=== PATIENT | female | born 1935 | race Caucasian/White ===

== ENCOUNTER 2017-09-14 12:37 | Emergency (ER) | payer OTHER, SELFPAY ==
[2017-09-14 12:47] VITALS: BP 200/91; PULSE 78; RESP 18; TEMP 36.4; O2SAT 100
--- NOTE | 2017-09-14 15:20 | ED.LOWEXIN ---
HPI - Extremity Injury (Lower) <Donna Frazier PA-C - Last Filed: 09/14/17 22:45> General Chief Complaint: Extremity Injury, Lower Stated Complaint: LOWER BACK PAIN AND HIP PAIN Time Seen by Provider: 09/14/17 14:21 Source: patient Mode of arrival: ambulatory Limitations: no limitations History of Present Illness HPI Narrative: This 82-year-old female complains of muscle spasms and worsening right hip pain today. She has a history of scoliosis and degenerative disc disease in her low back. She actually saw her PCP yesterday for worsening back pain after she tried to move a sofa. She states x-rays were taken of her low back, and after she stood up, she has had worsening burning type pain in the area where her right hip [place] is. She states that she has had intermittent muscle spasms in her low back and hip. Her PCP gave her Sal[place] yesterday, and awhile after she tried that she vomited and cause stomach upset. She tried Tylenol and ibuprofen without relief. She also tried Tylenol with codeine without relief. She denies any new weakness or paresthesia in her legs. She denies any new fever or new urinary symptoms. She states that she has constipation and this was noted on her x-ray yesterday, but did have a small bowel movement this morning. She denies any other complaints on systems review. Notes that her blood pressure has been running high and she did not take her blood pressure medicines this morning. Related Data Home Medications Medication Instructions Recorded Confirmed Calcium 1 tab PO DAILY 09/14/17 09/14/17 Miscellaneous Vitamins 1 dose PO DAILY 09/14/17 09/14/17 Sal[place] 1 tab PO .ONCE 09/14/17 09/14/17 Vitamin D3 1 cap PO DAILY 09/14/17 09/14/17 losartan 50 mg PO BID 09/14/17 09/14/17 metoprolol tartrate 50 mg PO BID 09/14/17 09/14/17 multivitamin with minerals 1 tab PO DAILY 09/14/17 09/14/17 [Hair,Skin and Nails] vit C,Q-Xt-wywrq-lutein-zeaxan 1 cap PO DAILY 09/14/17 09/14/17 [PreserVision AREDS 2] Previous Rx's Medication Instructions Recorded cyclobenzaprine 10 mg PO Q8H PRN #10 tab 09/14/17 Allergies Allergy/AdvReac Type Severity Reaction Status Date / Time No Known Drug Allergies Allergy Verified 09/14/17 12:46 Review of Systems <MANFRED Sorenson Last Filed: 09/14/17 22:45> Review of Systems All systems reviewed & are unremarkable except as noted in HPI and below Exam <MANFRED Sorenson Last Filed: 09/14/17 22:45> Narrative Exam Narrative: GENERAL APPEARANCE: Patient sitting comfortably, in no distress. LUNGS: Clear to auscultation bilaterally. HEART: Rate and rhythm regular without murmur, normal S1 and S2, no S3 or S4. MUSCULOSKELETAL: No point tenderness over the lumbar or sacral spine or SI joints. She has mild tenderness over the right posterior lateral hip, no where else over the hip. She is able to fully flex and extend the right hip with minimal tenderness. She has full passive range of motion with negative Huagn's test. Right lower extremity strength 5/5 hip flexion, knee extension, foot plantar flexion. She is tender with trying to move from supine to sit and that appears to elicit right-sided lumbar spasm NEUROLOGIC: Right lower extremity sensation is grossly intact. Patient is alert and oriented with normal speech and coordination EXTREMITIES: No cyanosis or edema Initial Vital Signs Initial Vital Signs: Vital Signs Temperature 97.5 F L 09/14/17 12:47 Pulse Rate 78 09/14/17 12:47 Respiratory Rate 18 09/14/17 12:47 Blood Pressure 200/91 H 09/14/17 12:47 Pulse Oximetry 100 09/14/17 12:47 <Azeem Rossi DO - Last Filed: 09/20/17 09:00> Initial Vital Signs Initial Vital Signs: Vital Signs Temperature 97.5 F L 09/14/17 12:47 Pulse Rate 78 09/14/17 12:47 Respiratory Rate 18 09/14/17 12:47 Blood Pressure 200/91 H 09/14/17 12:47 Pulse Oximetry 100 09/14/17 12:47 Course <MANFRED Sorenson Last Filed: 09/14/17 22:45> Hospital Course: Patient is feeling markedly improved after medications. She has not had any vomiting or GI upset. She found that she was able to move and walk comfortably to the restroom and on departure. Orders Ordered: Discontinued Medications Hydrocodone Bitart/Acetaminophen (Sal[place] 5/325) 1 tab PO NOW ONE Stop: 09/14/17 16:21 Last Admin: 09/14/17 16:37 Dose: 1 tab Cyclobenzaprine HCl (Flexeril) 10 mg PO NOW ONE Stop: 09/14/17 15:34 Last Admin: 09/14/17 15:36 Dose: 10 mg Ondansetron HCl (Zofran Odt) 4 mg PO NOW ONE Stop: 09/14/17 15:34 Last Admin: 09/14/17 15:36 Dose: 4 mg Vital Signs - 8 hr 09/14/17 16:19 09/14/17 17:24 Pulse Rate 86 93 H Respiratory Rate 14 18 Blood Pressure 169/84 H Blood Pressure [Left Arm] 190/92 H Pulse Oximetry 98 99 <Azeem Rossi DO - Last Filed: 09/20/17 09:00> Orders Ordered: Discontinued Medications Hydrocodone Bitart/Acetaminophen ([place] 5/325) 1 tab PO NOW ONE Stop: 09/14/17 16:21 Last Admin: 09/14/17 16:37 Dose: 1 tab Cyclobenzaprine HCl (Flexeril) 10 mg PO NOW ONE Stop: 09/14/17 15:34 Last Admin: 09/14/17 15:36 Dose: 10 mg Ondansetron HCl (Zofran Odt) 4 mg PO NOW ONE Stop: 09/14/17 15:34 Last Admin: 09/14/17 15:36 Dose: 4 mg Vital Signs - 8 hr 09/14/17 16:19 09/14/17 17:24 Pulse Rate 86 93 H Respiratory Rate 14 18 Blood Pressure 169/84 H Blood Pressure [Left Arm] 190/92 H Pulse Oximetry 98 99 MDM - Extremity Injury (Lower) <Donna Frazier PA-C - Last Filed: 09/14/17 22:45> Imaging Data hip: Radiologist's impression: View Report History [address] [address] XRay Report Signed Patient: Maday Luciano MR#: [id number] : 1935 Acct:[id number] Age/Sex: 82 / F Date of Service: 09/14/17 Loc: ED Accession Number: [id number] Procedure: XR hip w pel if done RT 2V Ordering Provider: Donna Frazier P.A-C PROCEDURE: XR HIP W PEL IF DONE RT 2V INDICATIONS: pain and spasms, h/o THR TECHNIQUE: AP pelvis with lateral view(s) of the right hip(s). COMPARISON: [facility], CR, PELVIS W/LAT HIP (RT) (PNL), 05/26/2013, 10:13. FINDINGS: Bones: There is a right hip arthroplasty with prosthesis in anatomic alignment. There is lucency and irregularity in the proximal femur involving the lesser trochanter. No acute dislocations. Pelvic ring appears intact. No suspicious bony lesions. Note is made of 4 surgical screws in the left femoral neck. Soft tissues: The visualized bowel gas pattern is normal. No suspicious soft tissue calcifications. IMPRESSION: Right hip arthroplasty with prosthesis in anatomic alignment. There is lucency in the area of the lesser trochanter of the right femur. Cannot rule out subtle ky-prosthesis fracture. If clinical symptoms persist or clinical suspicion for pathology is high, a repeat examination in 7-10 days, or advanced imaging such as CT is suggested for further evaluation. Dictated by: Francois Lawrence M.D. on 09/14/2017 at 15:56 Approved by: Francois Lawrence M.D. on 09/14/2017 at 16:01 Discharge Plan Departure Patient Disposition: Home, Self-Care Clinical Impression: Spasm of muscle of lower back, Hip pain Discharge Date/Time: 09/14/17 18:01 Interventions: ED Discharge Assessment Last Done: 09/14/17 17:24 Instructions: DI for Muscle Spasm Activity Restrictions/Additional Instructions: Since you are feeling better it is reasonable to use the medicine for pain and muscle spasm as needed and monitor at home. Your x-ray did not show any acute joint problem or dislocation of your hip hardware today. It did seem that the muscle spasm medication helped you. Remember that that and the pain medication can make you sleepy, so be careful about your activities. If you need to take 1 of the pain pills that your PCP prescribed, take the nausea medicine, Odansetron, that I prescribed for you about 45 min before each dose. Remember to take stool softener or Miralax with these, you can use what you have at home. Return if you have any acutely worsening symptoms. Otherwise, follow up with your PCP in a few days for recheck to make sure you are getting better. Gentle walking and movement is okay as tolerated but avoid excessive stress on your back and hip Prescriptions: New cyclobenzaprine 10 mg tablet 10 mg PO Q8H PRN (Reason: muscle spasm) Qty: 10 RF: 0 No Action losartan 50 mg Tablet 50 mg PO BID RF: 0 metoprolol tartrate 50 mg Tablet 50 mg PO BID RF: 0 multivitamin with minerals [Hair,Skin and Nails] Tablet 1 tab PO DAILY RF: 0 vit C,W-Mz-dnjoy-lutein-zeaxan [PreserVision AREDS 2] [id number] mt-iijg-kp-mg Capsule 1 cap PO DAILY RF: 0 Calcium tablet 1 tab PO DAILY RF: 0 [place] 1 tab PO .ONCE RF: 0 Vitamin D3 1 cap PO DAILY RF: 0 Miscellaneous Vitamins 1 dose PO DAILY RF: 0 Referrals: Geovanni Rey DO [Non-Staff] - <Azeem Rossi DO - Last Filed: 09/20/17 09:00> Cosign ED Attending Rosaleeature Attestation: I was immediately available in the department for consultation. Documentation has been reviewed. I agree with assessment and plan.
--- NOTE | 2017-09-14 15:33 | DI.RAD.S_ITS ---
PROCEDURE: XR HIP W PEL IF DONE RT 2V INDICATIONS: pain and spasms, h/o THR TECHNIQUE: AP pelvis with lateral view(s) of the right hip(s). COMPARISON: [facility], , PELVIS W/LAT HIP (RT) (PNL), 05/26/2013, 10:13. FINDINGS: Bones: There is a right hip arthroplasty with prosthesis in anatomic alignment. There is lucency and irregularity in the proximal femur involving the lesser trochanter. No acute dislocations. Pelvic ring appears intact. No suspicious bony lesions. Note is made of 4 surgical screws in the left femoral neck. Soft tissues: The visualized bowel gas pattern is normal. No suspicious soft tissue calcifications. IMPRESSION: Right hip arthroplasty with prosthesis in anatomic alignment. There is lucency in the area of the lesser trochanter of the right femur. Cannot rule out subtle ky-prosthesis fracture. If clinical symptoms persist or clinical suspicion for pathology is high, a repeat examination in 7-10 days, or advanced imaging such as CT is suggested for further evaluation. Dictated by: Francois Lawrence M.D. on 09/14/2017 at 15:56 Approved by: Francois Lawrence M.D. on 09/14/2017 at 16:01
[2017-09-14] MEDS: CYCLOBENZAPRINE 10 MG TABLET PO (15:36)
[2017-09-14] MEDS: ONDANSETRON 4 MG ODT PO (15:36)
--- NOTE | 2017-09-14 15:38 | ED_ITS ---
HPI - Extremity Injury (Lower) <Donna Frazier PA-C - Last Filed: 09/14/17 22:45> General Chief Complaint: Extremity Injury, Lower Stated Complaint: LOWER BACK PAIN AND HIP PAIN Time Seen by Provider: 09/14/17 14:21 Source: patient Mode of arrival: ambulatory Limitations: no limitations History of Present Illness HPI Narrative: This 82-year-old female complains of muscle spasms and worsening right hip pain today. She has a history of scoliosis and degenerative disc disease in her low back. She actually saw her PCP yesterday for worsening back pain after she tried to move a sofa. She states x-rays were taken of her low back, and after she stood up, she has had worsening burning type pain in the area where her right hip [place] is. She states that she has had intermittent muscle spasms in her low back and hip. Her PCP gave her [place] yesterday, and awhile after she tried that she vomited and cause stomach upset. She tried Tylenol and ibuprofen without relief. She also tried Tylenol with codeine without relief. She denies any new weakness or paresthesia in her legs. She denies any new fever or new urinary symptoms. She states that she has constipation and this was noted on her x-ray yesterday, but did have a small bowel movement this morning. She denies any other complaints on systems review. Notes that her blood pressure has been running high and she did not take her blood pressure medicines this morning. Related Data Home Medications Medication Instructions Recorded Confirmed Calcium 1 tab PO DAILY 09/14/17 09/14/17 Miscellaneous Vitamins 1 dose PO DAILY 09/14/17 09/14/17 [place] 1 tab PO .ONCE 09/14/17 09/14/17 Vitamin D3 1 cap PO DAILY 09/14/17 09/14/17 losartan 50 mg PO BID 09/14/17 09/14/17 metoprolol tartrate 50 mg PO BID 09/14/17 09/14/17 multivitamin with minerals 1 tab PO DAILY 09/14/17 09/14/17 [Hair,Skin and Nails] vit C,C-Xr-yritc-lutein-zeaxan 1 cap PO DAILY 09/14/17 09/14/17 [PreserVision AREDS 2] Previous Rx's Medication Instructions Recorded cyclobenzaprine 10 mg PO Q8H PRN #10 tab 09/14/17 Allergies Allergy/AdvReac Type Severity Reaction Status Date / Time No Known Drug Allergies Allergy Verified 09/14/17 12:46 Review of Systems <MANFRED Sorenson Last Filed: 09/14/17 22:45> Review of Systems All systems reviewed & are unremarkable except as noted in HPI and below Exam <MANFRED Sorenson Last Filed: 09/14/17 22:45> Narrative Exam Narrative: GENERAL APPEARANCE: Patient sitting comfortably, in no distress. LUNGS: Clear to auscultation bilaterally. HEART: Rate and rhythm regular without murmur, normal S1 and S2, no S3 or S4. MUSCULOSKELETAL: No point tenderness over the lumbar or sacral spine or SI joints. She has mild tenderness over the right posterior lateral hip, no where else over the hip. She is able to fully flex and extend the right hip with minimal tenderness. She has full passive range of motion with negative Huang' s test. Right lower extremity strength 5/5 hip flexion, knee extension, foot plantar flexion. She is tender with trying to move from supine to sit and that appears to elicit right-sided lumbar spasm NEUROLOGIC: Right lower extremity sensation is grossly intact. Patient is alert and oriented with normal speech and coordination EXTREMITIES: No cyanosis or edema Initial Vital Signs Initial Vital Signs: Vital Signs Temperature 97.5 F L 09/14/17 12:47 Pulse Rate 78 09/14/17 12:47 Respiratory Rate 18 09/14/17 12:47 Blood Pressure 200/91 H 09/14/17 12:47 Pulse Oximetry 100 09/14/17 12:47 <Azeem Rossi DO - Last Filed: 09/20/17 09:00> Initial Vital Signs Initial Vital Signs: Vital Signs Temperature 97.5 F L 09/14/17 12:47 Pulse Rate 78 09/14/17 12:47 Respiratory Rate 18 09/14/17 12:47 Blood Pressure 200/91 H 09/14/17 12:47 Pulse Oximetry 100 09/14/17 12:47 Course <MANFRED Sorenson Last Filed: 09/14/17 22:45> Hospital Course: Patient is feeling markedly improved after medications. She has not had any vomiting or GI upset. She found that she was able to move and walk comfortably to the restroom and on departure. Orders Ordered: Discontinued Medications Hydrocodone Bitart/Acetaminophen ([place] 5/325) 1 tab PO NOW ONE Stop: 09/14/17 16:21 Last Admin: 09/14/17 16:37 Dose: 1 tab Cyclobenzaprine HCl (Flexeril) 10 mg PO NOW ONE Stop: 09/14/17 15:34 Last Admin: 09/14/17 15:36 Dose: 10 mg Ondansetron HCl (Zofran Odt) 4 mg PO NOW ONE Stop: 09/14/17 15:34 Last Admin: 09/14/17 15:36 Dose: 4 mg Vital Signs - 8 hr 09/14/17 16:19 09/14/17 17:24 Pulse Rate 86 93 H Respiratory Rate 14 18 Blood Pressure 169/84 H Blood Pressure [Left Arm] 190/92 H Pulse Oximetry 98 99 <Azeem Rossi DO - Last Filed: 09/20/17 09:00> Orders Ordered: Discontinued Medications Hydrocodone Bitart/Acetaminophen ([place] 5/325) 1 tab PO NOW ONE Stop: 09/14/17 16:21 Last Admin: 09/14/17 16:37 Dose: 1 tab Cyclobenzaprine HCl (Flexeril) 10 mg PO NOW ONE Stop: 09/14/17 15:34 Last Admin: 09/14/17 15:36 Dose: 10 mg Ondansetron HCl (Zofran Odt) 4 mg PO NOW ONE Stop: 09/14/17 15:34 Last Admin: 09/14/17 15:36 Dose: 4 mg Vital Signs - 8 hr 09/14/17 16:19 09/14/17 17:24 Pulse Rate 86 93 H Respiratory Rate 14 18 Blood Pressure 169/84 H Blood Pressure [Left Arm] 190/92 H Pulse Oximetry 98 99 MDM - Extremity Injury (Lower) <Donna Frazier PA-C - Last Filed: 09/14/17 22:45> Imaging Data hip: Radiologist's impression: View Report History [address] [address] XRay Report Signed Patient: Maday Luciano MR#: [id number] : 1935 Acct:[id number] Age/Sex: 82 / F Date of Service: 09/14/17 Loc: ED Accession Number: [id number] Procedure: XR hip w pel if done RT 2V Ordering Provider: Donna Frazier P.A-C PROCEDURE: XR HIP W PEL IF DONE RT 2V INDICATIONS: pain and spasms, h/o THR TECHNIQUE: AP pelvis with lateral view(s) of the right hip(s). COMPARISON: [facility], CR, PELVIS W/ LAT HIP (RT) (PNL), 05/26/2013, 10:13. FINDINGS: Bones: There is a right hip arthroplasty with prosthesis in anatomic alignment. There is lucency and irregularity in the proximal femur involving the lesser trochanter. No acute dislocations. Pelvic ring appears intact. No suspicious bony lesions. Note is made of 4 surgical screws in the left femoral neck. Soft tissues: The visualized bowel gas pattern is normal. No suspicious soft tissue calcifications. IMPRESSION: Right hip arthroplasty with prosthesis in anatomic alignment. There is lucency in the area of the lesser trochanter of the right femur. Cannot rule out subtle ky-prosthesis fracture. If clinical symptoms persist or clinical suspicion for pathology is high, a repeat examination in 7-10 days, or advanced imaging such as CT is suggested for further evaluation. Dictated by: Francois Lawrence M.D. on 09/14/2017 at 15:56 Approved by: Francois Lawrence M.D. on 09/14/2017 at 16:01 Discharge Plan Departure Patient Disposition: Home, Self-Care Clinical Impression: Spasm of muscle of lower back, Hip pain Discharge Date/Time: 09/14/17 18:01 Interventions: ED Discharge Assessment Last Done: 09/14/17 17:24 Instructions: DI for Muscle Spasm Activity Restrictions/Additional Instructions: Since you are feeling better it is reasonable to use the medicine for pain and muscle spasm as needed and monitor at home. Your x-ray did not show any acute joint problem or dislocation of your hip hardware today. It did seem that the muscle spasm medication helped you. Remember that that and the pain medication can make you sleepy, so be careful about your activities. If you need to take 1 of the pain pills that your PCP prescribed, take the nausea medicine, Odansetron, that I prescribed for you about 45 min before each dose. Remember to take stool softener or Miralax with these, you can use what you have at home. Return if you have any acutely worsening symptoms. Otherwise, follow up with your PCP in a few days for recheck to make sure you are getting better. Gentle walking and movement is okay as tolerated but avoid excessive stress on your back and hip Prescriptions: New cyclobenzaprine 10 mg tablet 10 mg PO Q8H PRN (Reason: muscle spasm) Qty: 10 RF: 0 No Action losartan 50 mg Tablet 50 mg PO BID RF: 0 metoprolol tartrate 50 mg Tablet 50 mg PO BID RF: 0 multivitamin with minerals [Hair,Skin and Nails] Tablet 1 tab PO DAILY RF: 0 vit C,P-Jt-bpvaw-lutein-zeaxan [PreserVision AREDS 2] 125-030-27-1 mg-unit-mg- mg Capsule 1 cap PO DAILY RF: 0 Calcium tablet 1 tab PO DAILY RF: 0 [place] 1 tab PO .ONCE RF: 0 Vitamin D3 1 cap PO DAILY RF: 0 Miscellaneous Vitamins 1 dose PO DAILY RF: 0 Referrals: Geovanni Rey DO [Non-Staff] - <Azeem Rossi DO - Last Filed: 09/20/17 09:00> Cosign ED Attending Rosaleeature Attestation: I was immediately available in the department for consultation. Documentation has been reviewed. I agree with assessment and plan.
--- NOTE | 2017-09-14 15:47 | PC.NURSE ---
initial contact with pt in bed 13 to medicate pt with zofran and cyclobenzaprine for low back and hip pain. Pt reports had tried to move a furniture about 4 days ago alone which causing the pain. Attempted [place] for pain mgt but it is causing nausea and unable to tolerate it.
[2017-09-14 16:19] VITALS: BP 190/92; PULSE 86; RESP 14; O2SAT 98
[2017-09-14] MEDS: HYDROCODONE/ACET 5/325 TABLET 1 TAB PO (16:37)
--- NOTE | 2017-09-14 16:39 | PC.NURSE ---
Pt reports feeling a bit better but still has intermittent muscle spasm. medicated pt with norco as ordered. pt reports uses a walker at home for ambulation.
[2017-09-14 17:24] VITALS: BP 169/84; PULSE 93; RESP 18; O2SAT 99
== END 2017-09-14 18:01 | disposition home or self-care (01) ==
PROVIDERS: Emergency Provider Internal Medicine
DX: M62.830 Muscle spasm of back (principal); M25.559 Pain in unspecified hip
CPT/HCPCS: 73502; 99282; 99283

== ENCOUNTER → 2017-09-24 06:31 | Outpatient (CLI) | payer OTHER, SELFPAY ==
--- NOTE | 2017-09-24 | DI.MRI.S_ITS ---
PROCEDURE: MR LUMBAR SPINE WO CON INDICATIONS: LOW BACK PAIN TECHNIQUE: Noncontrast sagittal T1 spin echo and T2 fast echo, sagittal STIR, axial T1 and T2 fast spin echo through the lumbar spine. In cases with scoliosis, additional coronal T2 fast spin echo may be performed. COMPARISON: [facility] [place], CR, SPINE LUMB MIN 4VW, 04/24/2014, 10:38. FINDINGS: Image quality: Excellent. Alignment and Curvature: There is moderate scoliosis. Bone Marrow: Compression fracture involving the anterior endplate of L3 with approximately 30% loss of vertebral body height. No significant posterior displacement of L3 vertebral body. Mild marrow edema is present along the inferior endplate of L3. The fracture is new since the last lumbar spine radiograph dated 04/24/2014. Spinal Cord: Conus medullaris terminates at the L1-L2 level. Visualized cord demonstrates normal signal and size. Paraspinous Soft Tissues: No paravertebral masses. L1-L2: Preserved disc height. Moderate disc desiccation. There is broad posterior disc bulge and disc osteophyte complex. The central canal is mildly narrowed. Fnhe-ee-cnnsscqw bilateral foraminal stenosis. L2-L3: Mild loss of disc height and disc desiccation. There is broad posterior disc bulge and disc osteophyte complex. The central canal is epmd-mh-grmuohwskz narrowed. Lsri-cn-pxjhqnlg bilateral foraminal stenosis. L3-L4: Moderate loss of disc height and disc desiccation. There is broad posterior disc bulge and disc osteophyte complex. Mild bilateral facet arthropathy and hypertrophy of ligamentum flavum. The central canal is sxejmsjp-wv-edohsaft narrowed. Severe bilateral foraminal stenosis. L4-L5: Moderate loss of disc height and disc desiccation. There is broad posterior disc bulge and disc osteophyte complex. Mild bilateral facet arthropathy and moderate hypertrophy of ligamentum flavum. The central canal is eyrfzgzy-kv-wqwgjlkt narrowed. Severe right and mild left foraminal stenosis. L5-S1: Preserved disc height and mild disc desiccation with mild broad posterior disc bulge. Moderate hypertrophy of ligamentum flavum. The central canal is minimally narrowed. No foramina stenosis. IMPRESSION: 1. Acute or subacute compression fracture of L3 involving the inferior endplate with approximately 30% loss of vertebral body height. 2. Multilevel degenerative disc disease and facet arthropathy as described. 3. Multilevel central canal stenosis, moderate to severe at L3-L4 and L4-L5. 4. Multilevel foraminal stenosis, severe at L3-L4 bilaterally and L4-L5 on the right. Dictated by: Francois Lawrence M.D. on 09/24/2017 at 9:29 Transcribed by: NIDIA on 09/24/2017 at 9:44 Approved by: Francois Lawrence M.D. on 09/24/2017 at 18:51
== END ==
PROVIDERS: PCP Family Medicine; Visit Provider Family Medicine
DX: M54.5 Low back pain (principal); M48.56XA Collapsed vertebra, not elsewhere classified, lumbar region, initial encounter for fracture; M51.36 Other intervertebral disc degeneration, lumbar region; M48.061 Spinal stenosis, lumbar region without neurogenic claudication
CPT/HCPCS: 72148

== ENCOUNTER 2019-09-18 10:07 | Emergency (ER) | payer OTHER, SELFPAY ==
[2019-09-18 10:23] VITALS: BP 170/77; PULSE 63; RESP 19; TEMP 36.8; O2SAT 98; BMI 20.5
--- NOTE | 2019-09-18 10:49 | DI.RAD.S_ITS ---
PROCEDURE: XR CHEST 1V INDICATIONS: shortness of breath, intermitant chest pain TECHNIQUE: One view of the chest was acquired. COMPARISON: [facility], , CHEST 1 VIEW, 02/01/2013, 16:38. FINDINGS: Surgical changes and devices: None. Lungs and pleura: Lungs are clear. No pleural effusions or pneumothorax. Mediastinum: Mediastinal contours appear normal. Heart size is normal. Bones and chest wall: No suspicious bony lesions. Overlying soft tissues appear unremarkable. IMPRESSION: No evidence acute pulmonary process. Dictated by: Hansel Palacio M.D. on 09/18/2019 at 11:10 Approved by: Hansel Palacio M.D. on 09/18/2019 at 11:10
[2019-09-18 10:51] VITALS: BP 163/76; PULSE 60; RESP 16; O2SAT 98
--- NOTE | 2019-09-18 10:59 | DI.CT.S_ITS ---
PROCEDURE: CT HEAD/BRAIN WO CON INDICATIONS: headache with hypertension and intermittent chest pain TECHNIQUE: Noncontrast 4.5 mm thick angled axial sections acquired from the foramen magnum to the vertex, with coronal and sagittal reformats. For radiation dose reduction, the following was used: automated exposure control, adjustment of mA and/or kV according to patient size. COMPARISON: None. FINDINGS: Image quality: Excellent. CSF spaces: Basal cisterns are patent. No extra-axial fluid collections. Ventricles are normal in size and shape. Brain: No midline shift. No intracranial masses or hemorrhage. Vaca-white matter interface is normal. Age-related volume loss and mild small vessel ischemic change. Intracranial internal carotid artery atherosclerotic calcifications bilaterally. Skull and face: Calvarium and visualized facial bones are intact, without suspicious lesions. 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 IMPRESSION: 1. 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 No evidence acute stroke, hemorrhage, or mass. 3. Age related volume loss and mild small vessel ischemic change. Dictated by: Hansel Palacio M.D. on 09/18/2019 at 11:29 Approved by: Hansel Palacio M.D. on 09/18/2019 at 11:37
[2019-09-18 11:00] LABS: Add Manual Diff / Slide Review NO; Basophils Absolute Auto 100 /uL (0-100); Basophils Percent Auto 0.8 % (0-2); Eosinophils Absolute Auto 100 /uL (0-450); Eosinophils Percent Auto 1.5 % (2-4); Hemoglobin 13.8 g/dL (12.0-16.0); Lymphocytes Absolute Auto 1100 /uL (1100-4500); Mean Corpuscular HGB Conc 34.5 % (30-36); Mean Corpuscular Hemoglobin 31.6 PG (26-34); Mean Corpuscular Volume 91.5 fL (80-100); Monocytes Absolute Auto 800 /uL (0-900); Monocytes Percent Auto 11.5 % (3-14); Neutrophils Absolute Auto 5100 /uL (1500-7000); Neutrophils Percent Auto 71.2 % (50-75); Platelet Count 184 X10^3/uL (150-400); Red Blood Cell Count 4.37 X10^6/uL (4.0-5.2); Red Cell Distribution Width 13.6 % (11.6-14.8); White Blood Cell Count 7.1 X10^3/uL (4.5-11.0)
--- NOTE | 2019-09-18 11:00 | ED_ITS ---
HPI - Headache General Chief Complaint: Headache Stated Complaint: Headaches, started on left side, now in the back Time Seen by Provider: 09/18/19 10:36 Mode of arrival: Ambulatory Limitations: no limitations History of Present Illness HPI Narrative: CC: headache HPI: The patient is a 4-year-old female who intermittently has been having chest pain. Today the patient had a dull achy chest pain which is now resolved. She states that she developed a headache last night and was ready to call 911. She normally does not have headaches. Her headache was located in the left frontal parietal which moved down into her neck and back of her neck. She has never had a migraine to her knowledge. However her daughter has migraines. She admits to history of hypertension. She had coronary stenting performed in December at [facility] in December for coronary artery disease. She states she has been told that she had a previous myocardial infarction unbeknownst to her and she has a history of hypertension but denies diabetes mellitus. She denies stroke congestive heart failure COPD or asthma. She is a former smoker quit when she was 49 years old does not drink alcohol uses CBD marijuana or oil for neck pain. She denies any phonophobia photophobia nausea vomiting any change in vision loss of vision partial vision blind spots glaucoma and diplopia. She has had no numbness tingling paresthesias anesthesia is paresis or paralysis. Earlier she had chest pain but not she is not having chest pain at this time. She states that she has intermittent chest pain in the center of her chest which does not radiate anywhere. She has had no urinary symptoms. Related Data Home Medications Medication Instructions Recorded Confirmed losartan 50 mg PO BID 09/14/17 09/18/19 metoprolol tartrate 50 mg PO BID 09/14/17 09/18/19 multivitamin with minerals 1 tab PO DAILY 09/14/17 09/18/19 [Hair,Skin and Nails] amlodipine 5 mg PO BEDTIME 09/18/19 09/18/19 aspirin [Adult Low Dose Aspirin] 81 mg PO DAILY 09/18/19 09/18/19 atorvastatin 40 mg PO BEDTIME 09/18/19 09/18/19 calcium carb-mag oxide-vit D3 1 tab PO BEDTIME 09/18/19 09/18/19 [Calcium Magnesium + D] clopidogrel [Plavix] 75 mg PO BID 09/18/19 09/18/19 coenzyme Q10 [Co Q-10] 30 mg PO BEDTIME 09/18/19 09/18/19 nitroglycerin 0.4 mg SUBLINGUAL Q5-15M PRN 09/18/19 09/18/19 vitamins A,C,[id number]-kmii-oysczj 1 cap PO BID 09/18/19 09/18/19 [PreserVision AREDS] Previous Rx's Medication Instructions Recorded amoxicillin-pot clavulanate 1 tab PO Q12H #14 tab 09/18/19 [Augmentin] cyclobenzaprine 5 mg PO TID PRN #15 tab 09/18/19 prochlorperazine maleate 10 mg PO Q6H PRN #15 tab 09/18/19 [Compazine] Allergies Allergy/AdvReac Type Severity Reaction Status Date / Time No Known Drug Allergies Allergy Verified 09/18/19 10:35 Review of Systems Review of Systems Narrative: The patient's review of systems are all negative except for those mentioned in the history of present illness. Patient History Medical History Degenerative disc disease (Chronic) Osteoarthritis of both hips (Resolved) Scoliosis (Chronic) Surgical History (Updated 09/14/17 @ 15:43 by Donna Frazier PA-C) H/O bilateral hip replacements (Resolved) H/O exploratory laparotomy (Resolved) Social History Smoking Status: Former smoker Smoking Status: Former smoker alcohol intake frequency: 0-2 drinks per day Substance Use Type: does not use Exam Narrative Exam Narrative: PHYSICAL EXAM: CONSTITUTIONAL: Awake, Alert, Oriented, Coherent, Cooperative Pleasant and talkative. She is in NAD. She does not appear toxic or ill. HEAD: AT/NC right and left temples are nontender. She is nontender over her f orehead or parietal scalp. EENT: PERRL, FROM of eyes, no discharge, no nystagmus, no conjunctivitis. NOSE:No epistaxis or nasal drainage MOUTH:Oral mucosa is moist and pink, posterior pharynx is without erythema or exudate. NECK: Supple, no obvious JVD, Trachea is midline without stridor, no palpable LN. SPINE: Palpationof the cervical, Thoracic, Lumbar or Sacral spine reveals no gross deformity or tenderness. No paraspinous muscle tenderness or spasm. She has full range of motion of her neck. No CVA tenderness. THORAX: No deformity, retractions, chest wall tenderness. LUNGS: Clear, symmetrical breath sounds without respiratory distress. HEART: Normal heart tones, regular rhythm and rate without murmur. ABDOMEN: Soft, non-tender, without guarding, rebound, rigidity or palpable mass. LYMPHATIC: no palpable lymph nodes or spleen. EXTREMITIES: No edema, deformity, tenderness or cyanosis. SKIN: No rash, bruising, petechiae or purpura. NEURO: Awake, alert, oriented, conversive, cranial nerves II-XII are symmetrical , moves all 4 extremities and is ambulatory. Cerebellar functions are within normal limits. Rapid alternating motions are intact. [id number] is within normal limits. Visual goode are intact. Elools-fm-[id number] is within normal limits she has symmetrical strength no drift symmetrical sensation. MENTAL HEALTH: Does not appear anxious or depressed. Initial Vital Signs Initial Vital Signs: Vital Signs Temperature 98.3 F 09/18/19 10:23 Pulse Rate 63 09/18/19 10:23 Respiratory Rate 19 09/18/19 10:23 Blood Pressure 170/77 H 09/18/19 10:23 Pulse Oximetry 98 09/18/19 10:23 Course Course Course Narrative: 1313: Chest x-ray reveals no evidence of any acute cardiopulmonary pathology. CT of her head revealed: 1. Expansile lesion opacified in the right sphenoid sinus likely representing a mucocele. 2. No evidence of an acute stroke hemorrhage or mass. 3. Age-related volume loss and mild small vessel ischemic changes. Patient will need to be seen by her primary care physician and referred to an ENT to evaluate her sphenoid sinus. Patient does not have any nuchal rigidity. 1327: I informed the patient that she had a mucocele involving her sphenoid sinus which may be causing her to have a headache when she was rubbing her neck and complaining more of a neck pain and that her neck may be out. I informed her that I will CT her neck to make sure that that is not contributing arm to any pain and discomfort. 1443 CT of the cervical spine reveals no acute cervical spine fractures or dislocation. Degenerative disc disease throughout the mid to lower cervical spine. The patient will be discharged home. She will be referred to her primary care physician to be referred to an ENT doctor to evaluate the sphenoid mucocele. The patient will be placed on amoxicillin for her mucocele. She will be given a prescription for Naprosyn for her pain and discomfort, and cyclobenzaprine for any muscle spasms of her neck. Orders Ordered: ED Orders 09/18/19 10:45 C-Reactive Protein Quant Stat Erythrocyte Sedimentation Rate Stat 09/18/19 10:48 Complete Blood Count AUTO DIFF Stat Comprehensive Metabolic Panel Stat Lipase Stat Magnesium Stat NT-proBNP (BNP-Adult 18+) Stat Partial Thromboplastin Time Stat Prothrombin Time INR Stat Troponin & CK Cardiac Panel Stat 09/18/19 10:49 Chest [XR chest 1V] Stat EKG-12 Lead Stat 09/18/19 10:59 CT head/brain wo con Stat 09/18/19 12:30 Urine Culture Stat Urine Microscopic Stat 09/18/19 13:27 CT cervical spine wo con Stat Discontinued Medications Diphenhydramine HCl (Benadryl) 12.5 mg IV NOW ONE Stop: 09/18/19 13:18 Last Admin: 09/18/19 13:28 Dose: 12.5 mg Documented by: JOANNA Ketorolac Tromethamine (Toradol) 15 mg IV NOW ONE Stop: 09/18/19 13:18 Last Admin: 09/18/19 13:28 Dose: 15 mg Documented by: JOANNA Methylprednisolone (Solu-Medrol 125 Mg Vial) 125 mg IV NOW ONE Stop: 09/18/19 13:18 Last Admin: 09/18/19 13:28 Dose: 125 mg Documented by: JOANNA Metoclopramide HCl (Reglan) 10 mg IV NOW ONE Stop: 09/18/19 13:18 Last Admin: 09/18/19 13:28 Dose: 10 mg Documented by: JOANNA Vital Signs Vital signs: Vital Signs - 8 hr 09/18/19 10:51 09/18/19 12:49 09/18/19 13:22 Pulse Rate 60 78 74 Respiratory Rate 16 24 22 Blood Pressure [Left Arm] 163/76 H 176/86 H 159/74 H Pulse Oximetry 98 98 98 09/18/19 14:56 Pulse Rate 77 Respiratory Rate 18 Blood Pressure [Left Arm] 159/74 H Pulse Oximetry 98 MDM - Headache Medical Records Attestation: I reviewed the patient's medical records. Lab Data Attestation: I reviewed the patient's lab results. Result diagrams: 09/18/19 10:48 09/18/19 10:48 Labs: Lab Results 09/18/19 09/18/19 09/18/19 Range/Units 10:45 10:45 10:48 WBC 7.1 (4.5-11.0) X10^3/uL RBC 4.37 (4.0-5.2) X10^6/uL Hgb 13.8 (12.0-16.0) g/dL Hct 40.0 (36-46) % MCV 91.5 (80-100) fL MCH 31.6 (26-34) PG MCHC 34.5 (30-36) % RDW 13.6 (11.6-14.8) % Plt Count 184 (150-400) X10^3/uL Neut % (Auto) 71.2 (50-75) % Lymph % (Auto) 15.0 L (25-40) % Weston % (Auto) 11.5 (3-14) % Eos % (Auto) 1.5 L (2-4) % Baso % (Auto) 0.8 (0-2) % Neut # (Auto) 5100 (3009-2583) /uL Lymph # (Auto) 1100 (5516-9690) /uL Weston # (Auto) 800 (0-900) /uL Eos # (Auto) 100 (0-450) /uL Baso # (Auto) 100 (0-100) /uL ESR 13 (0-20) MM/HR PT (10.1-12.7) SECONDS INR (0.9-1.3) APTT (26.4-36.2) SECONDS Sodium (137-145) mmol/L Potassium (3.4-5.1) mmol/L Chloride (98-107) mmol/L Carbon Dioxide (22-32) mmol/L BUN (7-17) mg/dL Creatinine (0.52-1.04) mg/dL Estimated GFR (>60) mL/min BUN/Creatinine Ratio (6-22) Glucose (80-110) mg/dL Calcium (8.4-10.2) mg/dL Magnesium (1.6-2.3) mg/dL Total Bilirubin (0.2-1.3) mg/dL AST (14-36) IU/L ALT (<35) IU/L Alkaline Phosphatase (38-126) U/L Total Creatine Kinase (30-135) U/L CK-MB (CK-2) CK-MB (CK-2) Rel Index Troponin I (0.01-0.034) ng/mL C-Reactive Protein < 0.5 (<1.0) mg/dL NT-Pro-B Natriuret Pep (<450) pg/mL Total Protein (6.3-8.2) g/dL Albumin (3.5-5.0) g/dL Globulin (1.7-4.1) g/dL Albumin/Globulin Ratio (1.0-2.8) Lipase (23-300) U/L Urine RBC (0-5/HPF) Urine WBC (0-5/HPF) Ur Squamous Epith Cells (0-5/HPF) Ur Transition Epith Cell (0-5/HPF) Ur Renal Epithelial Cell Urine Bacteria (None) Ur Culture Indicated? 09/18/19 09/18/19 09/18/19 Range/Units 10:48 10:48 10:48 WBC (4.5-11.0) X10^3/uL RBC (4.0-5.2) X10^6/uL Hgb (12.0-16.0) g/dL Hct (36-46) % MCV (80-100) fL MCH (26-34) PG MCHC (30-36) % RDW (11.6-14.8) % Plt Count (150-400) X10^3/uL Neut % (Auto) (50-75) % Lymph % (Auto) (25-40) % Weston % (Auto) (3-14) % Eos % (Auto) (2-4) % Baso % (Auto) (0-2) % Neut # (Auto) (2730-6904) /uL Lymph # (Auto) (5838-1613) /uL Weston # (Auto) (0-900) /uL Eos # (Auto) (0-450) /uL Baso # (Auto) (0-100) /uL ESR (0-20) MM/HR PT 12.0 (10.1-12.7) SECONDS INR 1.0 (0.9-1.3) APTT 24 L (26.4-36.2) SECONDS Sodium 136 L (137-145) mmol/L Potassium 4.4 (3.4-5.1) mmol/L Chloride 109 H (98-107) mmol/L Carbon Dioxide 20 L (22-32) mmol/L BUN 16 (7-17) mg/dL Creatinine 0.80 (0.52-1.04) mg/dL Estimated GFR > 60.0 (>60) mL/min BUN/Creatinine Ratio 20.0 (6-22) Glucose 96 (80-110) mg/dL Calcium 10.0 (8.4-10.2) mg/dL Magnesium 2.4 H (1.6-2.3) mg/dL Total Bilirubin 0.7 (0.2-1.3) mg/dL AST 35 (14-36) IU/L ALT 19 (<35) IU/L Alkaline Phosphatase 82 (38-126) U/L Total Creatine Kinase 31 (30-135) U/L CK-MB (CK-2) TNP CK-MB (CK-2) Rel Index TNP Troponin I < 0.012 (0.01-0.034) ng/mL C-Reactive Protein (<1.0) mg/dL NT-Pro-B Natriuret Pep 750 H (<450) pg/mL Total Protein 7.2 (6.3-8.2) g/dL Albumin 4.1 (3.5-5.0) g/dL Globulin 3.1 (1.7-4.1) g/dL Albumin/Globulin Ratio 1.3 (1.0-2.8) Lipase 146 (23-300) U/L Urine RBC (0-5/HPF) Urine WBC (0-5/HPF) Ur Squamous Epith Cells (0-5/HPF) Ur Transition Epith Cell (0-5/HPF) Ur Renal Epithelial Cell Urine Bacteria (None) Ur Culture Indicated? 09/18/19 Range/Units 12:30 WBC (4.5-11.0) X10^3/uL RBC (4.0-5.2) X10^6/uL Hgb (12.0-16.0) g/dL Hct (36-46) % MCV (80-100) fL MCH (26-34) PG MCHC (30-36) % RDW (11.6-14.8) % Plt Count (150-400) X10^3/uL Neut % (Auto) (50-75) % Lymph % (Auto) (25-40) % Weston % (Auto) (3-14) % Eos % (Auto) (2-4) % Baso % (Auto) (0-2) % Neut # (Auto) (3264-2104) /uL Lymph # (Auto) (4085-3732) /uL Weston # (Auto) (0-900) /uL Eos # (Auto) (0-450) /uL Baso # (Auto) (0-100) /uL ESR (0-20) MM/HR PT (10.1-12.7) SECONDS INR (0.9-1.3) APTT (26.4-36.2) SECONDS Sodium (137-145) mmol/L Potassium (3.4-5.1) mmol/L Chloride (98-107) mmol/L Carbon Dioxide (22-32) mmol/L BUN (7-17) mg/dL Creatinine (0.52-1.04) mg/dL Estimated GFR (>60) mL/min BUN/Creatinine Ratio (6-22) Glucose (80-110) mg/dL Calcium (8.4-10.2) mg/dL Magnesium (1.6-2.3) mg/dL Total Bilirubin (0.2-1.3) mg/dL AST (14-36) IU/L ALT (<35) IU/L Alkaline Phosphatase (38-126) U/L Total Creatine Kinase (30-135) U/L CK-MB (CK-2) CK-MB (CK-2) Rel Index Troponin I (0.01-0.034) ng/mL C-Reactive Protein (<1.0) mg/dL NT-Pro-B Natriuret Pep (<450) pg/mL Total Protein (6.3-8.2) g/dL Albumin (3.5-5.0) g/dL Globulin (1.7-4.1) g/dL Albumin/Globulin Ratio (1.0-2.8) Lipase (23-300) U/L Urine RBC 0-1/hpf (0-5/HPF) Urine WBC 30-100/hpf H (0-5/HPF) Ur Squamous Epith Cells 1-5 /hpf (0-5/HPF) Ur Transition Epith Cell 5-10/hpf H (0-5/HPF) Ur Renal Epithelial Cell Not Reportable Urine Bacteria Few (2-10) H (None) Ur Culture Indicated? Specimen cultured Urine Dip Bedside Urine Glucose Negative Bedside Urine Bilirubin - Negative Bedside Urine Ketone - Negative Urine Specific [place] 1.010 Bedside Urine Occult Blood +/- Bedside Urine pH 6.5 Bedside Urine Protein +/- 15 Bedside Urine Urobilinogen - Negative Bedside Urine Nitrite - Negative Bedside Urine Leukocytes +++ 500 Esterase ECG Data Attestation: I personally reviewed and interpreted this ECG as follows: Interpretation: 1100: Patient's EKG obtained on September 17 at 10:4 6:38 a.m. reveals a sinus bradycardia with a ventricular rate of 59. Intervals are normal QTC is 413 milliseconds axis is normal. The patient has nonspecific slight ST segment depressions in leads II, III, AVF. There are questionable T-wave inversions in V1. There are no other acute diagnostic ST segment changes. The patient has nonspecific STs elevation in V2. There are no ST or T-wave changes to suggest acute ischemia or injury at this time. Discharge Plan Departure Patient Disposition: Home Clinical Impression: Intermittent chest pain, Mucocele of nasal sinus Headache Qualifiers: Headache type: unspecified Headache chronicity pattern: acute headache Intractability: not intractable Qualified Code(s): R51 - Headache Discharge Date/Time: 09/18/19 15:08 Instructions: Whiplash, DI for Sinus Headache, DI for Headache, DI for Muscle Spasm Activity Restrictions/Additional Instructions: 1. Follow-up with your primary care physician in 48-72 hours to be re-evaluated. For your mucocele UE you may need an ENT referral from your primary care physician. 2. For the mucocele take Augmentin 875 twice a day. 3. For the headache and neck pain take ibuprofen 2-3 ,200mg , three times a day for the acute headache. Do not take this chronically because it will interact with the Plavix you are on.. 4. For the headache and any muscle spasms of the neck take cyclobenzaprine 5 mg tablets 1-2 tablets 3 times a day as needed. 5. For any nausea and vomiting associated with the headache take Compazine 10 mg orally every 6 hours. 6. If you develop worsening headache, fever, persistent nausea and vomiting uncontrolled by the medication. Dizziness lightheadedness chest pain or passing-out you need to return to the emergency department. Prescriptions: New cyclobenzaprine 5 mg tablet 5 mg PO TID PRN (Reason: muscle spasm) Qty: 15 RF: 0 amoxicillin-pot clavulanate [Augmentin] 875-125 mg tablet 1 tab PO Q12H Qty: 14 RF: 0 prochlorperazine maleate [Compazine] 10 mg tablet 10 mg PO Q6H PRN (Reason: nausea and vomiting and headache) Qty: 15 RF: 0 No Action losartan 50 mg Tablet 50 mg PO BID RF: 0 metoprolol tartrate 50 mg Tablet 50 mg PO BID RF: 0 multivitamin with minerals [Hair,Skin and Nails] Tablet 1 tab PO DAILY RF: 0 atorvastatin 40 mg Tablet 40 mg PO BEDTIME RF: 0 clopidogrel [Plavix] 75 mg Tablet 75 mg PO BID RF: 0 amlodipine 5 mg Tablet 5 mg PO BEDTIME RF: 0 aspirin [Adult Low Dose Aspirin] 81 mg Tablet,Delayed Release (Dr/Ec) 81 mg PO DAILY RF: 0 nitroglycerin 0.4 mg Tablet, Sublingual 0.4 mg SUBLINGUAL Q5-15M PRN (Reason: Chest Pain) RF: 0 coenzyme Q10 [Co Q-10] 30 mg Capsule 30 mg PO BEDTIME RF: 0 PreserVision AREDS [id number] Capsule 1 cap PO BID RF: 0 Calcium Magnesium + D 400-167-133 mg-mg-unit Tablet 1 tab PO BEDTIME RF: 0 Referrals: Geovanni Rey DO [Primary Care Provider] -
[2019-09-18 11:08] LABS: PTT Partial Thromboplastin Tim 24 SECONDS (26.4-36.2)
[2019-09-18 11:16] LABS: Alanine Aminotransferase 19 IU/L (<35); Albumin 4.1 g/dL (3.5-5.0); Albumin Globulin Ratio 1.3 (1.0-2.8); Alkaline Phosphatase 82 U/L (38-126); Aspartate Aminotransferase 35 IU/L (14-36); Bilirubin Total 0.7 mg/dL (0.2-1.3); Blood Urea Nitrogen 16 mg/dL (7-17); Carbon Dioxide 20 mmol/L (22-32); Chloride 109 mmol/L (98-107); Creatine Kinase 31 U/L (30-135); Estimated Glomerular Filt Rate > 60.0 mL/min (>60); Globulin 3.1 g/dL (1.7-4.1); Glucose 96 mg/dL (80-110); HEMOLYSIS 36 (0-50); Lipase 146 U/L (23-300); Magnesium 2.4 mg/dL (1.6-2.3); Potassium 4.4 mmol/L (3.4-5.1); Sodium 136 mmol/L (137-145); Total Protein 7.2 g/dL (6.3-8.2)
[2019-09-18 11:20] LABS: NT-proBNP (BNP-Adult 18+) 750 pg/mL (<450)
[2019-09-18 11:21] LABS: C-Reactive Protein Quant < 0.5 mg/dL (<1.0)
[2019-09-18 11:28] LABS: Troponin I < 0.012 ng/mL (0.01-0.034)
[2019-09-18 11:45] LABS: Erythrocyte Sedimentation Rate 13 MM/HR (0-20)
[2019-09-18 12:49] VITALS: BP 176/86; PULSE 78; RESP 24; O2SAT 98
[2019-09-18 13:22] VITALS: BP 159/74; PULSE 74; RESP 22; O2SAT 98
--- NOTE | 2019-09-18 13:27 | DI.CT.S_ITS ---
PROCEDURE: CT CERVICAL SPINE WO CON INDICATIONS: now rubbing and c/o neck pain- headache TECHNIQUE: Noncontrast 3 mm thick sections acquired from the skull base to the T4 level. Sagittal and coronal reformats were then constructed. For radiation dose reduction, the following was used: automated exposure control, adjustment of mA and/or kV according to patient size. COMPARISON: None. FINDINGS: Image quality: Excellent. Bones: No fractures or dislocations. Decreased intervertebral disc space and degenerative endplate changes are noted at C4-5 through C6-7 levels causing mild to moderate central canal stenosis and mild bilateral neuroforaminal narrowing. Visualized superior ribs are intact. Soft tissues: Prevertebral soft tissues are normal in thickness. No paravertebral hematomas. No apical pneumothoraces. IMPRESSION: No acute cervical spine fracture or dislocation. Degenerative disc disease throughout mid to lower cervical spine. Dictated by: Erick Schrader M.D. on 09/18/2019 at 14:00 Approved by: Erick Schrader M.D. on 09/18/2019 at 14:01
[2019-09-18] MEDS: diphenhydrAMINE 50 MG/ML VIAL 12.5 MG IV (13:28)
[2019-09-18] MEDS: methylPREDNISolone 125 MG/2 ML VIAL IV (13:28)
[2019-09-18] MEDS: KETOROLAC 60 MG/2 ML VIAL 15 MG IV (13:28)
[2019-09-18] MEDS: METOCLOPRAMIDE 10 MG/2 ML INJ IV (13:28)
[2019-09-18 13:32] LABS: RBC Urine 0-1/HPF (0-5/HPF); WBC Urine 30-100/HPF (0-5/HPF)
[2019-09-18 13:33] LABS: Bacteria Urine Few (2-10); Culture Indicated Urine Specimen Cultured; Squamous Epithelial Cell Urine 1-5 /HPF (0-5/HPF); Transitional Epi Cells Urine 5-10/HPF (0-5/HPF)
[2019-09-18 14:56] VITALS: BP 159/74; PULSE 77; RESP 18; O2SAT 98
== END 2019-09-18 15:08 | disposition home or self-care (01) ==
PROVIDERS: Emergency Provider Emergency Medicine; PCP Family Medicine
DX: R07.9 Chest pain, unspecified (principal); J34.1 Cyst and mucocele of nose and nasal sinus; R51 Headache; I10 Essential (primary) hypertension
CPT/HCPCS: 36415; 70450; 71045; 72125; 80053; 81003; 81015; 82550; 83690; 83735; 83880; 84484; 85025; 85610; 85651; 85730; 86140; 87086; 93005; 96374; 96375; 99285; J1200; J1885; J2765; J2930

== ENCOUNTER → 2021-12-03 10:21 | Outpatient (CLI) | payer OTHER, SELFPAY ==
--- NOTE | 2021-12-03 10:23 | DI.CT.S_ITS ---
PROCEDURE: CT CHEST HIGH RESOLUTION INDICATIONS: INTERSTITIAL PULMONARY DISEASE,UNSPEC TECHNIQUE: Noncontrast 1.0 and 5.0 mm thick contiguous axial sections from the pulmonary apex to the posterior costophrenic angles, with 7 mm thick coronal and sagittal MIP reformats. 1 mm thick dynamic expiratory images acquired through the upper, mid, and lower lungs. 1.0 mm thick axial sections acquired from the abby to the posterior costophrenic angles in the prone end-inspiration position. For radiation dose reduction, the following was used: automated exposure control, adjustment of mA and/or kV according to patient size. COMPARISON: None. FINDINGS: Image quality: Excellent. Lungs: Moderate emphysema. Biapical pleural/parenchymal scarring present. Minimal reticular opacities present primarily at the costophrenic angles bilaterally. No honeycombing demonstrated. No definite or substantial traction bronchiectasis or air trapping. No widespread ground-glass opacity or micronodularity. A 2.8 cm nodular region of ground-glass opacity is present at the anterior left lower lobe abutting the fissure (3/189). A few scattered calcified granulomata are present. A few solid pulmonary nodules are present, for example a 3 mm nodule at the lateral aspect of the right lower lobe (3/220). Pleura: No pleural effusions or pneumothorax. Mediastinum: Heart size is normal. No pericardial effusion. Multivessel coronary artery calcifications and/or stents. Thoracic aorta and central pulmonary arteries are normal in size. Esophagus is normal in caliber. Bones and chest wall: No suspicious bony lesions. No vertebral body compression fractures. Abdomen: Cholelithiasis. IMPRESSION: 1. Minimal reticular opacities are present primarily at the costophrenic angles bilaterally. These are nonspecific and could represent senescent change and/or scarring, however early or minimal interstitial lung disease is difficult to exclude. 2. Moderate emphysema. 3. A few pulmonary nodules are present. Follow-up non-contrast chest CT is recommended in 6-12 months per Fleischner society guidelines. 4. Cholelithiasis. Dictated by: Leodan Lovelace M.D. on 12/04/2021 at 12:15 Approved by: Leodan Lovelace M.D. on 12/04/2021 at 13:19
== END ==
PROVIDERS: PCP Family Medicine; Referring Provider Internal Medicine Cardiovascular Disease; Visit Provider Internal Medicine Cardiovascular Disease
DX: J84.9 Interstitial pulmonary disease, unspecified (principal); J43.9 Emphysema, unspecified; R91.8 Other nonspecific abnormal finding of lung field; K80.20 Calculus of gallbladder without cholecystitis without obstruction
CPT/HCPCS: 71250

== ENCOUNTER 2022-02-22 10:43 | Inpatient (IN) | payer OTHER, SELFPAY ==
[2022-02-22] VITALS (15 sets, daily range): BP systolic 129–160; BP diastolic 55–118; PULSE 83–105; RESP 16; TEMP 36.7–36.8; O2SAT 94–97; BMI 20.5
[2022-02-22 11:18] LABS: INR 1.2 (0.9-1.3)
[2022-02-22 11:22] LABS: Add Manual Diff / Slide Review NO; Basophils Absolute Auto 100 /uL (0-100); Basophils Percent Auto 0.5 % (0-2); Eosinophils Absolute Auto 0 /uL (0-450); Eosinophils Percent Auto 0.1 % (2-4); Hematocrit 42.4 % (36-46); Hemoglobin 14.4 g/dL (12.0-16.0); Lymphocytes Absolute Auto 1600 /uL (1100-4500); Lymphocytes Percent Auto 10.5 % (25-40); Mean Corpuscular HGB Conc 33.9 % (30-36); Mean Corpuscular Hemoglobin 31.2 PG (26-34); Mean Corpuscular Volume 92.2 fL (80-100); Monocytes Absolute Auto 1400 /uL (0-900); Monocytes Percent Auto 9.1 % (3-14); Neutrophils Absolute Auto 12000 /uL (1500-7000); Neutrophils Percent Auto 79.8 % (50-75); Platelet Count 211 X10^3/uL (150-400); Red Cell Distribution Width 13.9 % (11.6-14.8)
[2022-02-22 11:24] LABS: Alanine Aminotransferase 24 IU/L (<35); Albumin 4.1 g/dL (3.5-5.0); Albumin Globulin Ratio 1.2 (1.0-2.8); Alkaline Phosphatase 86 U/L (38-126); Aspartate Aminotransferase 36 IU/L (14-36); BUN Creatinine Ratio 18.5 (6-22); Bilirubin Total 1.3 mg/dL (0.2-1.3); Blood Urea Nitrogen 12 mg/dL (7-17); Calcium 9.3 mg/dL (8.4-10.2); Carbon Dioxide 22 mmol/L (22-32); Chloride 103 mmol/L (98-107); Estimated Glomerular Filt Rate > 60 mL/min (>60); Globulin 3.4 g/dL (1.7-4.1); Glucose 133 mg/dL (80-110); Lipase 67 U/L (23-300); Potassium 4.1 mmol/L (3.4-5.1); Sodium 136 mmol/L (137-145); Total Protein 7.5 g/dL (6.3-8.2)
--- NOTE | 2022-02-22 11:31 | DI.US.S_ITS ---
PROCEDURE: US ABDOMEN LIMITED INDICATIONS: Right upper quadrant pain/attention gallbladder TECHNIQUE: Real-time focused scanning was performed of the abdomen, with image documentation. COMPARISON: [facility], CT, CT CHEST HIGH RESOLUTION, 12/03/2021, 10:29. FINDINGS: The liver is normal in size and demonstrates no focal lesions. Small stones/sludge can be seen, which appear mobile. The gallbladder wall is thickened to 14 mm. There is pericholecystic fluid and a positive sonographic Alexandra sign. The common bile duct is enlarged measuring nearly 12 mm. . Evaluation of pancreas is limited, secondary to overlying bowel gas. IMPRESSION: Abnormal gallbladder, with small stones/sludge, gallbladder wall thickening, pericholecystic fluid, and a positive sonographic Alexandra sign. There is strong ultrasound suspicion for cholecystitis. The common bile duct is also dilated at 12 mm. A cause of dilatation is not seen on this study. If clinically appropriate, an MRCP could be considered for further evaluation (assuming that there is no contraindication to MRI). Dictated by: Chip Perez M.D. on 02/22/2022 at 11:33 Approved by: Chip Perez M.D. on 02/22/2022 at 11:34
--- NOTE | 2022-02-22 11:32 | ED_ITS ---
HPI - Abdominal Pain General Chief Complaint: Abdominal Pain Stated Complaint: GALL BLADDER, PAIN LOWER RT ABD Time Seen by Provider: 02/22/22 11:27 History of Present Illness HPI narrative: Patient here for reproducible right upper quadrant pain for the past 3 days. Daughter at bedside. Has no appetite. No urinary complaints. Pain radiates to the back. No chest pain no dyspnea. No cough cold congestion or fever chills recently. Patient has history of appendectomy. Pain worse with palpation and movement. Related Data Home Medications Medication Instructions Recorded Confirmed losartan 50 mg tablet 50 mg PO BID 09/14/17 02/22/22 metoprolol tartrate 50 mg tablet 50 mg PO BID 09/14/17 02/22/22 amlodipine 5 mg tablet 5 mg PO BEDTIME 09/18/19 02/22/22 aspirin 81 mg tablet,delayed 81 mg PO DAILY 09/18/19 02/22/22 release (Adult Low Dose Aspirin) atorvastatin 40 mg tablet 40 mg PO BEDTIME 09/18/19 02/22/22 clopidogrel 75 mg tablet (Plavix) 75 mg PO BID 09/18/19 02/22/22 vitamins A,C,B-ekbn-skfrck 14,320 1 cap PO BID 09/18/19 02/22/22 unit-226 mg-200 unit capsule (PreserVision AREDS) Previous Rx's Medication Instructions Recorded hydrocodone 5 mg-acetaminophen 325 1 tab PO Q4H PRN Pain, Moderate 02/24/22 mg tablet (4-6) #12 tabs levofloxacin 750 mg tablet 750 mg PO DAILY #1 tab 02/24/22 polyethylene glycol 3350 17 gram 17 gm PO DAILY PRN Constipation 02/24/22 oral powder packet #12 ea Allergies Allergy/AdvReac Type Severity Reaction Status Date / Time No Known Drug Allergies Allergy Verified 02/24/22 08:49 Review of Systems Review of Systems Narrative: GENERAL: negative chills, fatigue, malaise, fever, sweats. HEENT: negative sinus pain, ear pain, sore throat RESPIRATORY: negative dyspnea, cough CARDIOVASCULAR: negative chest pain, palpitations GASTROINTESTINAL: negative nausea, vomiting, positive abdominal pain : negative dysuria, frequency, hematuria MUSCULOSKELETAL: negative muscle or bony pain SKIN: negative rash, skin lesions NEUROLOGIC: negative weakness, numbness ROS Unobtainable: All systems reviewed & are unremarkable except as noted in HPI and below Patient History Medical History (Updated 02/22/22 @ 13:44 by Burak Lopez MD) Degenerative disc disease Osteoarthritis of both hips Scoliosis Surgical History H/O bilateral hip replacements H/O exploratory laparotomy Social History household members: none Smoking Status: Former smoker alcohol intake: never Smoking Status: Former smoker alcohol intake frequency: 0-2 drinks per day Substance Use Type: does not use Exam Narrative Exam Narrative: GENERAL: in no distress, not toxic not dyspneic HEAD: Normocephalic. EYES: Pupils equal round No scleral icterus. ENT: Mucous membranes moist. NECK: Trachea midline. CARDIOVASCULAR: Regular rate and rhythm without murmurs RESPIRATORY: Clear to auscultation. Breath sounds equal bilaterally. No wheezes, rales, or rhonchi. GASTROINTESTINAL: Abdomen soft, reproducible right upper quadrant tenderness. No peritoneal signs. Bowel sounds are present. Positive Alexandra sign. No CVA tenderness. No right lower quadrant tenderness. No McBurney point tenderness EXTREMITIES: No gross deformities. BACK: No flank tenderness. NEURO: AOx4. SKIN: Warm and dry PSYCH: Not anxious, is cooperative Initial Vital Signs Initial Vital Signs: Vital Signs Temperature 98.0 F 02/22/22 10:53 Pulse Rate 86 02/22/22 10:53 Respiratory Rate 16 02/22/22 10:53 Blood Pressure 153/67 H 02/22/22 10:53 Pulse Oximetry 97 02/22/22 10:53 Oxygen Delivery Method 02/22/22 10:53 Course Course Course Narrative: No new issues during course of stay Decision to Admit Date: 02/22/22 Decision to Admit time: 13:40 Orders Ordered: Discontinued Medications Acetaminophen (Acetaminophen 325 Mg Tablet) 650 mg PO Q6H PRN PRN Reason: Fever/Mild Pain (1-3) Last Admin: 02/22/22 14:59 Dose: 650 mg Documented By: LISA Hydrocodone Bitart/Acetaminophen (Hydrocodone/Acet 5/325 Tablet) 1 tab PO Q4H PRN PRN Reason: Pain, Moderate (4-6) Last Admin: 02/24/22 17:12 Dose: 1 tab Documented By: Admin: 02/24/22 04:36 Dose: 1 tab Documented By: Admin: 02/23/22 09:35 Dose: 1 tab Documented By: Admin: 02/22/22 18:39 Dose: 1 tab Documented By: KAI Hydrocodone Bitart/Acetaminophen (Hydrocodone/Acet 5/325 Tablet) 1 tab PO PACUNOW PRN PRN Reason: Mild or moderate pain Amlodipine Besylate (Amlodipine 5 Mg Tablet) 5 mg PO BEDTIME HUGO Aspirin (Aspirin Ec 81 Mg Tablet) 81 mg PO DAILY HUGO Atorvastatin Calcium (Atorvastatin 20 Mg Tablet) 40 mg PO BEDTIME HUGO Clopidogrel Bisulfate (Clopidogrel 75 Mg Tablet) 75 mg PO BID HUGO Bupivacaine HCl 30 ml/ (Epinephrine HCl 0.15 mg) 0 ml INJ NOW ONE Stop: 02/24/22 11:13 Last Admin: 02/24/22 11:13 Dose: 30 ml Documented By: CAPO Fentanyl (Fentanyl 100 Mcg/2 Ml Inj) 0 mcg IV Q5M PRN PRN Reason: Pain, Moderate (4-6) Last Admin: 02/24/22 13:08 Dose: 50 mcg Documented By: IF Hydromorphone HCl (Hydromorphone 0.5 Mg Inj) 0.5 mg IV Q4H PRN PRN Reason: Pain, Moderate (4-6) Hydromorphone HCl (Hydromorphone 2 Mg Inj) 0 mg IV Q5M PRN PRN Reason: Pain, Moderate (4-6) Last Admin: 02/24/22 12:57 Dose: 0.5 mg Documented By: IF Piperacillin Sod/Tazobactam (Sod 4.5 gm/ Sodium Chloride) 100 mls @ 200 mls/hr IV NOW ONE Stop: 02/22/22 13:45 Last Infusion: 02/22/22 14:41 Dose: 0 mls/hr Documented By: Admin: 02/22/22 13:59 Dose: 200 mls/hr Documented By: SB Piperacillin Sod/Tazobactam (Sod 3.375 gm/ Sodium Chloride) 100 mls @ 25 mls/hr IV Q8H [facility] Last Admin: 02/24/22 14:24 Dose: Not Given Documented By: Infusion: 02/24/22 14:11 Dose: 0 mls/hr Documented By: Admin: 02/24/22 04:36 Dose: 25 mls/hr Documented By: Infusion: 02/24/22 01:43 Dose: 0 mls/hr Documented By: Admin: 02/23/22 21:43 Dose: 25 mls/hr Documented By: Infusion: 02/23/22 17:33 Dose: 0 mls/hr Documented By: Admin: 02/23/22 13:33 Dose: 25 mls/hr Documented By: Infusion: 02/23/22 08:26 Dose: 25 mls/hr Documented By: Admin: 02/23/22 04:26 Dose: 25 mls/hr Documented By: Infusion: 02/23/22 01:31 Dose: 25 mls/hr Documented By: Admin: 02/22/22 21:31 Dose: 25 mls/hr Documented By: AM Sodium Chloride (Normal Saline 0.9%) 250 mls @ 21 mls/hr IV Q24H PRN PRN Reason: Flush Lactated Ringer's (Lactated Ringers) 1,000 mls @ 84 mls/hr IV NOW ONE Stop: 02/24/22 20:40 Last Infusion: 02/24/22 13:41 Dose: 0 mls/hr Documented By: Admin: 02/24/22 11:17 Dose: 84 mls/hr Documented By: Infusion: 02/24/22 11:17 Dose: 84 mls/hr Documented By: Admin: 02/24/22 08:47 Dose: 84 mls/hr Documented By: RITA Lactated Ringer's (Lactated Ringers) 1,000 mls @ 120 mls/hr IV CONT HUGO Last Admin: 02/24/22 14:25 Dose: Not Given Documented By: OPAL Levofloxacin (Levofloxacin 250 Mg Tablet) 750 mg PO NOW ONE Stop: 02/24/22 14:25 Last Admin: 02/24/22 14:54 Dose: 750 mg Documented By: OPAL Losartan Potassium (Losartan 50 Mg Tablet) 50 mg PO BID HUGO Lutein (Vit C/E/Zn/Coppr/Lutein/Zeaxan Capsule) 1 cap PO DAILY HUGO Melatonin (Melatonin 3 Mg Tablet) 6 mg PO BEDTIME PRN PRN Reason: Insomnia Metoprolol Tartrate (Metoprolol Ir 50 Mg Tablet) 50 mg PO BID HUGO Naloxone HCl (Naloxone 0.4 Mg/Ml Vial) 0.2 mg IV Q2MIN PRN PRN Reason: Opiate Reversal Ondansetron HCl (Ondansetron 4 Mg/2 Ml Inj) 4 mg IV Q6HR PRN PRN Reason: Nausea And Vomiting Ondansetron HCl (Ondansetron 4 Mg/2 Ml Inj) 4 mg IV NOW PRN PRN Reason: Nausea And Vomiting Last Admin: 02/24/22 13:03 Dose: 4 mg Documented By: IF Oxycodone/Acetaminophen (Oxycodone/Acetaminophen 5/325 Tablet) 1 tab PO PACUNOW PRN PRN Reason: Mild or Moderate Pain Polyethylene Glycol (Polyethylene Glycol 3350 17 Gm Powd.Pack) 17 gm PO DAILY PRN PRN Reason: Constipation Potassium Chloride (Potassium Chloride 20 Meq Tab) 40 meq PO 1700 ONE Stop: 02/24/22 17:01 Last Admin: 02/24/22 17:11 Dose: 40 meq Documented By: CM Sennosides (Sennosides 8.6 Mg Tablet) 8.6 mg PO BID PRN PRN Reason: Constipation Sodium Chloride (Sodium Chloride 0.9% Flush) 10 ml IV PRN PRN PRN Reason: Flush Sodium Chloride (Sodium Chloride 0.9% Flush) 10 ml IV BID [facility] Last Admin: 02/24/22 07:42 Dose: Not Given Documented By: Admin: 02/24/22 04:19 Dose: 10 ml Documented By: Admin: 02/23/22 07:50 Dose: Not Given Documented By: Admin: 02/22/22 21:31 Dose: 10 ml Documented By: AM Reevaluation(s) Reevaluation #1: Spoke with patient and family understand need for admit for antibiotics and nonsurgical at this time. Time: 13:41 Consultations Consultation #1: Spoke with general surgery Dr. Moreno, will follow, admit to hospitalist, at this time nonsurgical and try Zosyn for medical management 1st Time: 13:42 Consultation #2: Spoke with hospitalist, Dr. Snyder, will admit patient. Possible MRCP tomorrow Time: 14:21 Vital Signs Vital signs: Vital Signs - 8 hr 02/22/22 10:53 Temperature 98.0 F Pulse Rate 86 Respiratory Rate 16 Blood Pressure 153/67 H Pulse Oximetry 97 Oxygen Delivery Method Room Air MDM - Abdominal Pain Differential Diagnosis Differential diagnosis: Likely abdominal pain, acute appendicitis, constipation, pancreatitis and other (Cholecystitis/cholelithiasis) Lab Data Result diagrams: 02/24/22 05:04 02/24/22 05:04 Labs: Lab Results 02/22/22 02/22/22 02/22/22 Range/Units 11:00 11:00 11:00 WBC 15.0 H (4.5-11.0) X10^3/uL RBC 4.60 (4.0-5.2) X10^6/uL Hgb 14.4 (12.0-16.0) g/dL Hct 42.4 (36-46) % MCV 92.2 (80-100) fL MCH 31.2 (26-34) PG MCHC 33.9 (30-36) % RDW 13.9 (11.6-14.8) % Plt Count 211 (150-400) X10^3/uL Neut % (Auto) 79.8 H (50-75) % Lymph % (Auto) 10.5 L (25-40) % [place] % (Auto) 9.1 (3-14) % Eos % (Auto) 0.1 L (2-4) % Baso % (Auto) 0.5 (0-2) % Neut # (Auto) 03902 H (1352-5069) /uL Lymph # (Auto) 1600 (7948-0537) /uL [place] # (Auto) 1400 H (0-900) /uL Eos # (Auto) 0 (0-450) /uL Baso # (Auto) 100 (0-100) /uL PT 14.0 H (10.1-12.7) SECONDS INR 1.2 (0.9-1.3) Sodium 136 L (137-145) mmol/L Potassium 4.1 (3.4-5.1) mmol/L Chloride 103 (98-107) mmol/L Carbon Dioxide 22 (22-32) mmol/L BUN 12 (7-17) mg/dL Creatinine 0.65 (0.52-1.04) mg/dL Estimated GFR > 60 (>60) mL/min BUN/Creatinine Ratio 18.5 (6-22) Glucose 133 H (80-110) mg/dL Calcium 9.3 (8.4-10.2) mg/dL Total Bilirubin 1.3 (0.2-1.3) mg/dL AST 36 (14-36) IU/L ALT 24 (<35) IU/L Alkaline Phosphatase 86 (38-126) U/L Total Protein 7.5 (6.3-8.2) g/dL Albumin 4.1 (3.5-5.0) g/dL Globulin 3.4 (1.7-4.1) g/dL Albumin/Globulin Ratio 1.2 (1.0-2.8) Lipase 67 (23-300) U/L SARS-CoV-2 (PCR) (Negative) 02/22/22 Range/Units 12:27 WBC (4.5-11.0) X10^3/uL RBC (4.0-5.2) X10^6/uL Hgb (12.0-16.0) g/dL Hct (36-46) % MCV (80-100) fL MCH (26-34) PG MCHC (30-36) % RDW (11.6-14.8) % Plt Count (150-400) X10^3/uL Neut % (Auto) (50-75) % Lymph % (Auto) (25-40) % [place] % (Auto) (3-14) % Eos % (Auto) (2-4) % Baso % (Auto) (0-2) % Neut # (Auto) (3707-9157) /uL Lymph # (Auto) (6322-8356) /uL [place] # (Auto) (0-900) /uL Eos # (Auto) (0-450) /uL Baso # (Auto) (0-100) /uL PT (10.1-12.7) SECONDS INR (0.9-1.3) Sodium (137-145) mmol/L Potassium (3.4-5.1) mmol/L Chloride (98-107) mmol/L Carbon Dioxide (22-32) mmol/L BUN (7-17) mg/dL Creatinine (0.52-1.04) mg/dL Estimated GFR (>60) mL/min BUN/Creatinine Ratio (6-22) Glucose (80-110) mg/dL Calcium (8.4-10.2) mg/dL Total Bilirubin (0.2-1.3) mg/dL AST (14-36) IU/L ALT (<35) IU/L Alkaline Phosphatase (38-126) U/L Total Protein (6.3-8.2) g/dL Albumin (3.5-5.0) g/dL Globulin (1.7-4.1) g/dL Albumin/Globulin Ratio (1.0-2.8) Lipase (23-300) U/L SARS-CoV-2 (PCR) Negative (Negative) Imaging Data US - abdomen: Radiologist's Impression: [address] [address] Ultrasound Report Signed Patient: Maday Luciano MR#: [id number] : 1935 Acct:[id number] Age/Sex: 86 / F Date of Service: 02/22/22 Loc: ED Accession Number: [id number] ?? Procedure: US abdomen limited Ordering Provider: Burak Lopez MD PROCEDURE: US ABDOMEN LIMITED ? INDICATIONS:? Right upper quadrant pain/attention gallbladder ? TECHNIQUE:? Real-time focused scanning was performed of the abdomen, with image documentati on.? ? COMPARISON:? [facility], CT, CT CHEST HIGH RESOLUTION, 12/03/2021, 10:29. ? FINDINGS:? The liver is normal in size and demonstrates no focal lesions. ? Small stones/sludge can be seen, which appear mobile.? The gallbladder wall is thickened to 14 mm.? There is pericholecystic fluid and a positive sonographic Alexandra sign.? ? The common bile duct is enlarged measuring nearly 12 mm. .? ? Evaluation of pancreas is limited, secondary to overlying bowel gas. ? ? IMPRESSION:? Abnormal gallbladder, with small stones/sludge, gallbladder wall thickening, pericholecystic fluid, and a positive sonographic Alexandra sign.? There is strong ultrasound suspicion for cholecystitis. ? The common bile duct is also dilated at 12 mm. A cause of dilatation is not seen on this study. If clinically appropriate, an MRCP could be considered for further evaluation (assuming that there is no contraindication to MRI).? ? ? Dictated by: Chip Perez M.D. on 02/22/2022 at 11:33 ? ? Approved by: Chip Perez M.D. on 02/22/2022 at 11:34 ? ECG Data Interpretation: Normal sinus rhythm rate [address] elevation or depression MDM Narrative Medical decision making narrative: Appropriate for admission for acute cholecystitis antibiotics. At this time non surgical after discussion with surgeon. Hospitalist agrees for admit. Patient and daughter agree for admit. Discharge Plan Departure Patient Disposition: Admitted as Observation Clinical Impression: Acute calculous cholecystitis Admit Date/Time: 02/22/22 14:22 Admit Provider: Erlin Snyder
[2022-02-22 11:33] LABS: HEMOLYSIS 123 (0-50)
[2022-02-22 13:36] LABS: COVID19 -Nasal RAPID Negative (Negative)
[2022-02-22] MEDS: PIPERACILLIN/TAZO 4.5 GM in SODIUM CHLORIDE 0.9% 100 ML IV (13:59)
[2022-02-22] MEDS: ACETAMINOPHEN 325 MG TABLET 650 MG PO (14:59)
--- NOTE | 2022-02-22 15:31 | PC.NURSE ---
Day shift: Pt in room from ED at approx 1530. Denies any pain or nausea. Putting a gown and brief on now. A&Ox4. Calm and cooperative with care. Oreinted to room and call light. She betty be general diet and if that is not tolerated then NPO at midnight. If she tolerates food and drink she might not have to have surgery (Per Dr Snyder). Will monitor this closely. VS ok but BP is elevated. RA 99%.
--- NOTE | 2022-02-22 17:08 | PM.HP.1 ---
History of Present Illness History of Present Illness Date Patient Seen: 02/22/22 Time Patient Seen: 16:00 Chief complaint: GALL BLADDER, PAIN LOWER RT ABD Narrative: Maday Luciano is an 86yo F with PMH of CAD s/p 4 stents in 2019 on plavix, previous laparatomy for bowel obstruction and HTN who presents with acute RUQ pain and found to have cholecystitis. Patient notes 4 months of nausea after almost every meal, which she now thinks is due to her gallbladder. Then then developed worsening RUQ pain for 3 days and the nausea increased. Abd US in the ED showed evidence of cholecystitis with stones, dilated CBD to 12mm, gallbladder wall thickening, pericholecystic fluid, and a positive sonographic Alexandra sign. General surgery was consulted and recommended conservative management with abx. When speaking with the patient however, she says she really wants the surgery as she doesn't want to deal with the nausea like she has the past few months. Patient History Medical History (Updated 02/22/22 @ 13:44 by Burak Lopez MD) Degenerative disc disease Osteoarthritis of both hips Scoliosis Surgical History H/O bilateral hip replacements H/O exploratory laparotomy Family & Social History Social History: Prior Living Arrangements House Safety & Behavioral: Feels Safe in Current Yes Environment Been Physically Hurt or No Threatened By a Person Tobacco & Substance use: Smoking Status Former smoker alcohol intake never alcohol intake frequency 0-2 drinks per day Substance Use Type does not use Meds Home Medications and Allergies Home Medications Medication Instructions Recorded Confirmed Type losartan 50 mg tablet 50 mg PO BID 09/14/17 02/22/22 History metoprolol tartrate 50 mg tablet 50 mg PO BID 09/14/17 02/22/22 History amlodipine 5 mg tablet 5 mg PO BEDTIME 09/18/19 02/22/22 History aspirin 81 mg tablet,delayed 81 mg PO DAILY 09/18/19 02/22/22 History release (Adult Low Dose Aspirin) atorvastatin 40 mg tablet 40 mg PO BEDTIME 09/18/19 02/22/22 History clopidogrel 75 mg tablet (Plavix) 75 mg PO BID 09/18/19 02/22/22 History vitamins A,C,O-wfco-ktzwzo 14,320 1 cap PO BID 09/18/19 02/22/22 History unit-226 mg-200 unit capsule (PreserVision AREDS) Allergies Allergy/AdvReac Type Severity Reaction Status Date / Time No Known Drug Allergies Allergy Verified 09/18/19 10:35 Review of Systems Review of Systems Narrative: All other systems reviewed with the patient and are negative unless otherwise stated. Exam Vital Signs (past 8 hours): - 02/22/22 10:53 02/22/22 11:11 02/22/22 11:13 Temperature 98.0 F Pulse Rate 86 86 Respiratory Rate 16 Blood Pressure 153/67 H 152/55 H Pulse Oximetry 97 96 Oxygen Delivery Method Room Air Oxygen Flow Rate 02/22/22 11:13 02/22/22 11:30 02/22/22 11:30 Temperature Pulse Rate 84 90 Respiratory Rate Blood Pressure 146/84 H Pulse Oximetry 97 97 Oxygen Delivery Method Oxygen Flow Rate 02/22/22 12:00 02/22/22 12:01 02/22/22 12:01 Temperature Pulse Rate 89 89 Respiratory Rate Blood Pressure 160/69 H Pulse Oximetry 97 97 Oxygen Delivery Method Oxygen Flow Rate 02/22/22 12:30 02/22/22 12:31 02/22/22 12:31 Temperature Pulse Rate 87 85 Respiratory Rate Blood Pressure 146/118 H Pulse Oximetry 97 97 Oxygen Delivery Method Oxygen Flow Rate 02/22/22 13:00 02/22/22 13:00 02/22/22 13:30 Temperature Pulse Rate 83 Respiratory Rate Blood Pressure 151/88 H 154/65 H Pulse Oximetry 97 Oxygen Delivery Method Oxygen Flow Rate 02/22/22 13:30 02/22/22 14:00 02/22/22 14:00 Temperature Pulse Rate 86 90 Respiratory Rate Blood Pressure 147/66 H Pulse Oximetry 96 95 Oxygen Delivery Method Oxygen Flow Rate 02/22/22 14:30 02/22/22 14:30 02/22/22 15:00 Temperature Pulse Rate Respiratory Rate Blood Pressure 153/66 H 138/77 Pulse Oximetry 96 Oxygen Delivery Method Oxygen Flow Rate 02/22/22 15:00 02/22/22 15:51 Temperature 98.2 F Pulse Rate 90 95 H Respiratory Rate 16 Blood Pressure 129/65 Pulse Oximetry 96 94 Oxygen Delivery Method Oxygen Flow Rate 0 Oxygen Delivery Method Room Air Oxygen Flow Rate 0 Narrative Exam Narrative: GEN: no acute distress, appears younger than stated age HEENT: moist mucous membranes, PERRL NECK: trachea midline, no JVD CV: regular rate and rhythm, no murmurs PULM: clear bilaterally ABD: soft, RUQ tenderness, nondistended, no organomegaly EXT: warm and well perfused with no edema NEURO: awake, alert, oriented, no focal deficits Objective Labs Result Diagrams: 02/22/22 11:00 02/22/22 11:00 Labs: Laboratory Results - last 24 hr 02/22/22 02/22/22 02/22/22 11:00 11:00 11:00 WBC 15.0 H RBC 4.60 Hgb 14.4 Hct 42.4 MCV 92.2 MCH 31.2 MCHC 33.9 RDW 13.9 Plt Count 211 Neut % (Auto) 79.8 H Lymph % (Auto) 10.5 L [place] % (Auto) 9.1 Eos % (Auto) 0.1 L Baso % (Auto) 0.5 Neut # (Auto) 72386 H Lymph # (Auto) 1600 [place] # (Auto) 1400 H Eos # (Auto) 0 Baso # (Auto) 100 PT 14.0 H INR 1.2 Sodium 136 L Potassium 4.1 Chloride 103 Carbon Dioxide 22 BUN 12 Creatinine 0.65 Estimated GFR > 60 BUN/Creatinine Ratio 18.5 Glucose 133 H Calcium 9.3 Total Bilirubin 1.3 AST 36 ALT 24 Alkaline Phosphatase 86 Total Protein 7.5 Albumin 4.1 Globulin 3.4 Albumin/Globulin Ratio 1.2 Lipase 67 SARS-CoV-2 (PCR) 02/22/22 12:27 WBC RBC Hgb Hct MCV MCH MCHC RDW Plt Count Neut % (Auto) Lymph % (Auto) [place] % (Auto) Eos % (Auto) Baso % (Auto) Neut # (Auto) Lymph # (Auto) [place] # (Auto) Eos # (Auto) Baso # (Auto) PT INR Sodium Potassium Chloride Carbon Dioxide BUN Creatinine Estimated GFR BUN/Creatinine Ratio Glucose Calcium Total Bilirubin AST ALT Alkaline Phosphatase Total Protein Albumin Globulin Albumin/Globulin Ratio Lipase SARS-CoV-2 (PCR) Negative Assessment & Plan Assessment & Plan narrative: # acute cholecystitis -diagnosed via abd US and positive alexandra's, LFT's and T bili normal -Dr. Moreno, gen surgery recommending treatment with Zosyn and deferring surgery if possible given patient's age and comorbidities -patient would like her gallbladder removed, will make NPO at midnight for gen surg to discuss lap veronique in AM -of note hasn't taken her plavix in 2 days -continue Zosyn -NPO at midnight # asymptomatic bacteriuria -UA with WBC's -patient denies urinary symptoms -will not treat # CAD s/p stents in 2019 -holding plavix due to possible surgery, continue aspirin -continue home lipitor, and metop tart # HTN, chronic -continue home amlodipine and losartan Code status is DNR. COVID negative. DVT prophylaxis with SCDs. Proxy is daughter Lisa. I have reviewed home meds and used all available resources to reconcile the home meds. This patient will be admitted as inpatient and will require greater than 2 midnights of hospital time to treat acute cholecystitis. Time Spent With Patient Critical Care time: I spent a total of [] minutes of critical care time on this patient's care today; this time is exclusive of procedural time.
[2022-02-22 17:34] LABS: Bilirubin Urine UA NEGATIVE (NEGATIVE); Color Urine UA YELLOW; Glucose Urine UA NEGATIVE (Negative); Ketones Urine UA TRACE (NEGATIVE); Leukocyte Esterase Urine UA TRACE (NEGATIVE); Nitrite Urine UA POSITIVE (Negative); Occult Blood Urine UA 2+ (Negative); Protein Urine UA TRACE (Negative); Urobilinogen Urine UA 0.2 E.U./dL (0.2)
[2022-02-22 17:38] LABS: Appearance Urine UA Slightly Cloudy
[2022-02-22 17:42] LABS: Bacteria Urine Many (>30); Culture Indicated Urine Specimen Cultured; RBC Urine 1-5/HPF (0-5/HPF); Squamous Epithelial Cell Urine 1-5 /HPF (0-5/HPF); WBC Urine 5-10/HPF (0-5/HPF)
--- NOTE | 2022-02-22 18:20 | PC.NURSE ---
Day shift: Counted Pt's money with Pt and that money placed in special bag and is now in the safe. Pt did not want anything else in the safe at this time.
[2022-02-22] MEDS: HYDROCODONE/ACET 5/325 TABLET 1 TAB PO (18:39)
[2022-02-22] MEDS: SODIUM CHLORIDE 0.9% FLUSH 10 ML IV (21:31)
[2022-02-22] MEDS: PIPERACILLIN/TAZO 3.375 GM in SODIUM CHLORIDE 0.9% 100 ML IV (21:31)
[2022-02-23 01:05] VITALS: BP 147/71; PULSE 110; RESP 16; TEMP 36.5; O2SAT 95
[2022-02-23] MEDS: PIPERACILLIN/TAZO 3.375 GM in SODIUM CHLORIDE 0.9% 100 ML IV ×3 (04:26→21:43)
[2022-02-23 06:00] VITALS: BP 158/66; PULSE 95; RESP 17; TEMP 36.7; O2SAT 98
[2022-02-23 06:30] LABS: Add Manual Diff / Slide Review NO; Basophils Absolute Auto 0 /uL (0-100); Basophils Percent Auto 0.3 % (0-2); Eosinophils Absolute Auto 0 /uL (0-450); Eosinophils Percent Auto 0.1 % (2-4); Hematocrit 40.6 % (36-46); Hemoglobin 13.7 g/dL (12.0-16.0); Lymphocytes Absolute Auto 1200 /uL (1100-4500); Lymphocytes Percent Auto 9.2 % (25-40); Mean Corpuscular HGB Conc 33.7 % (30-36); Mean Corpuscular Hemoglobin 30.9 PG (26-34); Mean Corpuscular Volume 91.7 fL (80-100); Monocytes Absolute Auto 1300 /uL (0-900); Monocytes Percent Auto 9.8 % (3-14); Neutrophils Absolute Auto 10300 /uL (1500-7000); Neutrophils Percent Auto 80.6 % (50-75); Platelet Count 161 X10^3/uL (150-400); Red Blood Cell Count 4.42 X10^6/uL (4.0-5.2); Red Cell Distribution Width 14.1 % (11.6-14.8); White Blood Cell Count 12.8 X10^3/uL (4.5-11.0)
[2022-02-23 06:41] LABS: BUN Creatinine Ratio 17.4 (6-22); Blood Urea Nitrogen 12 mg/dL (7-17); Calcium 8.9 mg/dL (8.4-10.2); Carbon Dioxide 25 mmol/L (22-32); Chloride 103 mmol/L (98-107); Estimated Glomerular Filt Rate > 60 mL/min (>60); Glucose 111 mg/dL (80-110); HEMOLYSIS < 15 (0-50); Potassium 3.8 mmol/L (3.4-5.1); Sodium 136 mmol/L (137-145)
[2022-02-23] MEDS: HYDROCODONE/ACET 5/325 TABLET 1 TAB PO (09:35)
[2022-02-23 12:00] VITALS: BP 131/74; PULSE 88; RESP 18; TEMP 35.9; O2SAT 94
[2022-02-23 12:16] VITALS: BP 136/66; PULSE 100; RESP 16; TEMP 36; O2SAT 95
--- NOTE | 2022-02-23 14:31 | CM.DANOTE ---
Patient is an 86 yo female who was admitted on 02/22/22 for Gall Bladder. Pt has [facility] for insurance and her PCP is Dr. Hema Hogan. EMR was reviewed. Per MD, pt with hx of SBO and has had 4 months of nausea and admitted for cholecystitis. Per Surgeon Consult, recommend conservative tx with IV abx and no surgery needed at this time due to pt's age and comorbidities. Pt requesting surgery as she states I'm so sick of feeling this terrible and I just want it removed. Pt plans to have further consultation with Surgeon bedside today to determine if surgical intervention recommended or Surgeon willing to provide Lap Анна. SW met bedside with pt and explained role and she confirms she lives in [place] alone but has local supportive Dtr/DPOA Lisa who is also retired now and available for assist if needed. Pt is active and independent at baseline and denies any hx of HH or SNF. 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 Pt is hopeful for surgery and then d/c to home with family assist and to transport when medically stable. Pt does not anticipate any further needs at this time. Plan: SW to follow closely for bedside consult with Surgeon to determine surgical intervention vs conservative tx with abx and then home. SW to follow for any identified discharge planning needs. VERNON Castellanos Discharge Planning/Care Management CM Discharge Assessment Start: 02/23/22 14:30 Freq: Status: Active Protocol: Document 02/23/22 14:30 BF (Rec: 02/23/22 14:31 [id number]) Discharge Planning Assessment Assigned Coal Washer Tender VERNON Ryan/Assigned Designee Name Radha Gonzalez in [place] Advance Directives? Yes Advance Directives on File No History Provided By Patient,Medical Record Has Patient been admitted in last 30 No days? Prior Living Arrangements House Household Members none Type of transporation used prior to Drives own vehicle admit Independent with ADL's Yes Is patient alert and oriented? Yes Needs Assistance With Home Chores / Shopping Caregiver for Another No Barriers to Discharge No Discharge Plan Home Transportation Arrangement Dtr or son to provide transport at d/c Referrals Initiated None needed Additional Comment Pending possible surgery Whiteboard Updated in Patient Room with Yes name and ext. # of Coal Washer Tender Review Status In Process Please Provide Date Initial DC 02/23/22 Assessment Was Performed Next Review Type Continued Stay Review
--- NOTE | 2022-02-23 14:37 | P.HP_ITS ---
History of Present Illness History of Present Illness Chief complaint: GALL BLADDER, PAIN LOWER RT ABD Narrative: Ms Luciano presented last night to the emergency room with severe pain that she described as feeling like a rope tied around her upper abdomen and squeezing. Her daughter is a nurse and encouraged her to go to the emergency room. They did check her heart, and ultimately determined that she had acute cholecystitis. A CT scan of the chest was done but the abdominal ultrasound showed pericholecystic fluid, gallbladder wall thickening with sludge and stones, and positive sonographic Alexandra sign; overall very indicative of the diagnosis. She says the pain has been ongoing for at least 3 nights causing her to lose sleep for 3 days and she has been nauseous. She is barely eating anything and has had a depressed appetite over the course of the last 3 days. She said that movement seem to make it worse and that the pain started in her epigastric region and radiates to her back. She said she never had pain quite like this before. However, in retrospect she had often bouts of nausea especially right before bed after dinner that may have been indicative of gallbladder illness. She explains that she has had so many other issues including heart attack and stents which were placed 3-4 years ago. As well as multiple surgeries on her hips and back pain. She has had surgery on her abdomen as well. 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 She has had a appendect chandler as well. She is very convinced of the etiology being gallbladder related and is eager to have her gallbladder removed. She understands the risks of surgery and has been off her Plavix for least 4 days. Patient History Medical History (Updated 02/22/22 @ 13:44 by Burak Lopez MD) Degenerative disc disease Osteoarthritis of both hips Scoliosis Surgical History H/O bilateral hip replacements H/O exploratory laparotomy Family & Social History Social History: household members none Prior Living Arrangements House Safety & Behavioral: Feels Safe in Current Yes Environment Been Physically Hurt or No Threatened By a Person Tobacco & Substance use: Smoking Status Former smoker alcohol intake never alcohol intake frequency 0-2 drinks per day Substance Use Type does not use Meds Home Medications and Allergies Home Medications Medication Instructions Recorded Confirmed Type losartan 50 mg tablet 50 mg PO BID 09/14/17 02/22/22 History metoprolol tartrate 50 mg tablet 50 mg PO BID 09/14/17 02/22/22 History amlodipine 5 mg tablet 5 mg PO BEDTIME 09/18/19 02/22/22 History aspirin 81 mg tablet,delayed 81 mg PO DAILY 09/18/19 02/22/22 History release (Adult Low Dose Aspirin) atorvastatin 40 mg tablet 40 mg PO BEDTIME 09/18/19 02/22/22 History clopidogrel 75 mg tablet (Plavix) 75 mg PO BID 09/18/19 02/22/22 History vitamins A,C,Q-abai-lsrgrb 14,320 1 cap PO BID 09/18/19 02/22/22 History unit-226 mg-200 unit capsule (PreserVision AREDS) Allergies Allergy/AdvReac Type Severity Reaction Status Date / Time No Known Drug Allergies Allergy Verified 09/18/19 10:35 Exam Vital Signs (past 8 hours): - 02/23/22 12:00 02/23/22 12:16 Temperature 96.7 F L 96.8 F L Pulse Rate 88 100 H Respiratory Rate 18 16 Blood Pressure 131/74 136/66 Pulse Oximetry 94 95 Oxygen Flow Rate 0 0 Oxygen Delivery Method Room Air Oxygen Flow Rate 0 Const General: cooperative, healthy appearing and other (Does appear her stated age) Orientation: alert, awake and oriented x3 Limitations: mental status not altered Eyes Sclera: sclerae normal Resp Effort & Inspection: normal respiratory effort and able to speak in complete sentences Cardio Pulses: radial pulses present GI Inspection: scar (Large lower midline incision, right lower quadrant incision, left upper alesia) Palpation: soft, No hernia and tender (Epigastric) Objective Labs Result Diagrams: 02/23/22 06:00 02/23/22 06:00 Labs: Laboratory Results - last 24 hr 02/22/22 02/23/22 02/23/22 17:00 06:00 06:00 WBC 12.8 H RBC 4.42 Hgb 13.7 Hct 40.6 MCV 91.7 MCH 30.9 MCHC 33.7 RDW 14.1 Plt Count 161 Neut % (Auto) 80.6 H Lymph % (Auto) 9.2 L [place] % (Auto) 9.8 Eos % (Auto) 0.1 L Baso % (Auto) 0.3 Neut # (Auto) 33219 H Lymph # (Auto) 1200 [place] # (Auto) 1300 H Eos # (Auto) 0 Baso # (Auto) 0 Sodium 136 L Potassium 3.8 Chloride 103 Carbon Dioxide 25 BUN 12 Creatinine 0.69 Estimated GFR > 60 BUN/Creatinine Ratio 17.4 Glucose 111 H Calcium 8.9 Urine Color Yellow Urine Appearance Slightly cloudy Urine pH 5.0 Ur Specific [place] 1.020 Urine Protein Trace H Urine Glucose (UA) Negative Urine Ketones Trace H Urine Occult Blood 2+ H Urine Nitrate Positive H Urine Bilirubin Negative Urine Urobilinogen 0.2 Ur Leukocyte Esterase Trace H Urine RBC 1-5/hpf Urine WBC 5-10/hpf H Ur Squamous Epith Cells 1-5 /hpf Urine Bacteria Many (>30) H Ur Culture Indicated? Specimen cultured Assessment & Plan Assessment and plan (1) Acute calculous cholecystitis: Status: Acute Plan I discussed the risks benefits and alternatives of laparoscopic possible open cholecystectomy. In the setting of an acute infection as in her case I explained that this cholecystectomy could be a little bit more difficult than average but she understands the risks and would like proceed. Time Spent With Patient Critical Care time: I spent a total of [] minutes of critical care time on this patient's care today; this time is exclusive of procedural time.
[2022-02-23 17:19] VITALS: BP 135/66; PULSE 107; RESP 16; TEMP 36; O2SAT 94
--- NOTE | 2022-02-23 18:15 | P.PN_ITS ---
Subjective Subjective Date Patient Seen: 02/23/22 Time Patient Seen: 08:00 Interval history: She says she feels lousy. She is quite uncomfortable with continued abdominal pain. Her appetite is poor. Exam Vital Signs (past 8 hours): - 02/23/22 12:00 02/23/22 12:16 02/23/22 17:19 Temperature 96.7 F L 96.8 F L 96.8 F L Pulse Rate 88 100 H 107 H Respiratory Rate 18 16 16 Blood Pressure 131/74 136/66 135/66 Pulse Oximetry 94 95 94 Oxygen Flow Rate 0 0 0 Oxygen Delivery Method Room Air Oxygen Flow Rate 0 Narrative Exam Narrative: GEN: in distress from pain CV: regular rate and rhythm, no murmurs PULM: clear bilaterally ABD: soft, RUQ tenderness, nondistended, no organomegaly EXT: warm and well perfused with no edema NEURO: awake, alert, oriented, no focal deficits Objective Labs Result Diagrams: 02/23/22 06:00 02/23/22 06:00 Labs: Laboratory Results - last 24 hr 02/23/22 02/23/22 06:00 06:00 WBC 12.8 H RBC 4.42 Hgb 13.7 Hct 40.6 MCV 91.7 MCH 30.9 MCHC 33.7 RDW 14.1 Plt Count 161 Neut % (Auto) 80.6 H Lymph % (Auto) 9.2 L [place] % (Auto) 9.8 Eos % (Auto) 0.1 L Baso % (Auto) 0.3 Neut # (Auto) 96547 H Lymph # (Auto) 1200 [place] # (Auto) 1300 H Eos # (Auto) 0 Baso # (Auto) 0 Sodium 136 L Potassium 3.8 Chloride 103 Carbon Dioxide 25 BUN 12 Creatinine 0.69 Estimated GFR > 60 BUN/Creatinine Ratio 17.4 Glucose 111 H Calcium 8.9 PFSH Medical History (Updated 02/22/22 @ 13:44 by Burak Lopez MD) Degenerative disc disease Osteoarthritis of both hips Scoliosis Surgical History H/O bilateral hip replacements H/O exploratory laparotomy Social History household members: none Smoking Status: Former smoker alcohol intake: never Assessment & Plan Assessment & Plan narrative: # acute cholecystitis -diagnosed via abd US and positive durand's, LFT's and T bili normal -of note hasn't taken her plavix in 2 days -continue Zosyn -NPO at midnight for planned veronique with general surgery on 02/24 # asymptomatic bacteriuria -UA with WBC's -patient denies urinary symptoms -urine culture positive, continue zosyn # CAD s/p stents in 2019 -holding plavix due to possible surgery, continue aspirin -continue home lipitor, and metop tart # HTN, chronic -continue home amlodipine and losartan Time Spent With Patient Critical Care time: I spent a total of [] minutes of critical care time on this patient's care today; this time is exclusive of procedural time.
[2022-02-23 20:10] VITALS: BP 146/74; PULSE 111; RESP 18; TEMP 37.3; O2SAT 95
[2022-02-24] VITALS (13 sets, daily range): BP systolic 122–193; BP diastolic 65–105; PULSE 87–102; RESP 14–19; TEMP 36.2–37.7; O2SAT 88–98
--- NOTE | 2022-02-24 | PATH_ITS ---
[facility] Accession Number: [id number] . 01 Material submitted: . gallbladder - GALLBLADDER . 01 Diagnosis: Gallbladder, Cholecystectomy: Cholelithiasis with active cholecystitis. One benign cystic duct lymph node. No evidence of neoplasm. [facility] 03/02/2022 0642 Local . 01 Electronically signed: . Erlin Man MD, PhD, Pathologist NPI- [id number] . 01 Gross description: . The specimen is received in formalin labeled with the patient's name, , and gallbladder, and consists of an intact gallbladder measuring 10.2 x 4.6 x 3.4 cm with [place] to brown shaggy serosa with adherent material consistent with exudate and a rough and unremarkable hepatic surface. The cystic duct was received patent, is inked blue, and a brown lymph node candidate is identified measuring 0.8 cm in greatest dimension. Opening the specimen reveals the lumen to contain a black faceted calculus measuring 0.6 cm in greatest dimension as well as a moderate amount of dark brown semi-solid material with minimal bile identified. The mucosa is [place] to brown and roughened with no areas of yellow discoloration, polyps or lesions identified The angulo range from 0.5 to 1.4 cm thick. Real Estate Inspector sections to include the cystic duct margin, lymph node candidate, and full-thickness sections are submitted in cassettes A1-A2. ([id number]) /MRV 02/26/2022 180 Local . 01 Pathologist provided ICD-10: K80.60, K81.0 . 01 CPT . 296667 Specimen Comment: A courtesy copy of this report has been sent to [facility] Pathology Performed at: 01 [facility] [address] [address], [place], [place] [id number] MD Duy Means MD Phone: [phone]
[2022-02-24] MEDS: SODIUM CHLORIDE 0.9% FLUSH 10 ML IV (04:19)
[2022-02-24] MEDS: PIPERACILLIN/TAZO 3.375 GM in SODIUM CHLORIDE 0.9% 100 ML IV (04:36)
[2022-02-24] MEDS: HYDROCODONE/ACET 5/325 TABLET 1 TAB PO ×2 (04:36→17:12)
[2022-02-24 05:40] LABS: Hematocrit 38.8 % (36-46); Hemoglobin 13.1 g/dL (12.0-16.0); Mean Corpuscular HGB Conc 33.7 % (30-36); Mean Corpuscular Hemoglobin 30.9 PG (26-34); Mean Corpuscular Volume 91.6 fL (80-100); Platelet Count 179 X10^3/uL (150-400); Red Blood Cell Count 4.23 X10^6/uL (4.0-5.2); Red Cell Distribution Width 13.8 % (11.6-14.8); White Blood Cell Count 14.2 X10^3/uL (4.5-11.0)
[2022-02-24 05:48] LABS: Alanine Aminotransferase 33 IU/L (<35); Albumin 3.3 g/dL (3.5-5.0); Albumin Globulin Ratio 1.1 (1.0-2.8); Alkaline Phosphatase 112 U/L (38-126); Aspartate Aminotransferase 30 IU/L (14-36); BUN Creatinine Ratio 21.9 (6-22); Bilirubin Total 1.2 mg/dL (0.2-1.3); Blood Urea Nitrogen 14 mg/dL (7-17); Calcium 8.6 mg/dL (8.4-10.2); Carbon Dioxide 24 mmol/L (22-32); Chloride 104 mmol/L (98-107); Estimated Glomerular Filt Rate > 60 mL/min (>60); Glucose 104 mg/dL (80-110); HEMOLYSIS < 15 (0-50); Potassium 3.4 mmol/L (3.4-5.1); Sodium 136 mmol/L (137-145); Total Protein 6.3 g/dL (6.3-8.2)
[2022-02-24] MEDS: LACTATED RINGERS 1,000 ML 84 ML IV ×2 (08:47→11:17)
--- NOTE | 2022-02-24 09:28 | PC.NURSE ---
0830: Patient off floor to surgery, report given to Manan RAMÍREZ. NPO, IV Zosyn infusing. Alert, oriented, and pleasantly cooperative. Consent signed and in chart. Patient removed bracelet and ring and handed off to daughter.
--- NOTE | 2022-02-24 10:07 | PM.PREOP ---
Pre-operative Note Interval Note History & Physical reviewed/Exam performed by Physician: Yes Changes to H&P: No
--- NOTE | 2022-02-24 11:03 | SUR.OPER ---
Supine on padded OR bed, head on pillow, safety belt at thigh, bilateral arms secured on padded arm board <90 degrees abduction. Legs uncrossed. Padded footboard in place. Tape over blanket to secure lower legs.
[2022-02-24] MEDS: BUPIVACAINE 0.5% (PF) 30 ML, EPINEPHrine 0.15 MG INJ (11:13)
--- NOTE | 2022-02-24 12:39 | PM.OP.1 ---
Procedure & Clinicians Procedure: Laparoscopic cholecystectomy Same procedure as scheduled: Yes Surgeon: Alice Ball Click Yes if Unassisted: Yes Anesthesia Type: General Operative Notes Procedure in detail: Patient was taken to the operating room and placed supine on the operating room table bilateral SCDs were in place she was being treated with antibiotics. A time-out was performed. general endotracheal anesthesia was induced. The abdomen was prepped and draped in the usual sterile fashion local anesthetic infused around the umbilicus the skin was incised with an 11 blade scalpel the incision carried down through the subcutaneous tissues using electrocautery. Two Masoud retractors were used to grasp and elevate the abdominal wall fascia which was then entered sharply with an 11 blade scalpel correct position was verified with a finger sweep and Francisca trocar was placed under direct visualization into the abdomen. The abdomen was then insufflated. Patient tolerated this well next the 3 accessory subcostal trocars were placed under direct visualization after infusing local anesthesia. At this point it was clear the gallbladder was very enlarged and inflamed. There were adhesions of the omentum to the wall. Additionally it seemed like some colon and duodenum were also lightly adhered to the markedly inflamed edematous gallbladder. I placed a long needle into the abdomen to drain the excess fluid in order to grasp it and retract it cephalad. Next gently using a combination of sharp and blunt dissection I took down several adhesions of the omentum and colon to both the gallbladder and the liver bed. Finally able to grasp the neck of the gallbladder I retracted and began to dissect in search of a critical view. Again using blunt dissection and a laparoscopic peanut I was able to slowly delineate the critical view. The cystic duct was seen entering into the gallbladder from multiple views. The cystic artery was in the usual place behind. Two clips worse placed on the stay side of the cystic duct and 1 on the specimen the duct was ligated. The artery was then doubly clipped and ligated as well. The remainder of the gallbladder was relieved from the gallbladder fossa using electrocautery. The gallbladder was removed from the umbilical port site after being placed in an Endo-Catch bag. In the process of removing the gallbladder the skin and fascial excision needed to be extended. The Endo-Catch bag broke but the gallbladder was taken out in 1 piece. Next the abdomen was reinsufflated and the operative site was inspected for hemostatic stasis and security of the clips. Of note during the case purulence material was protruding from the gallbladder. There was some general oozing but no major blood loss. The abdomen was then desufflated and the fascia at the umbilical incision was closed with 3 0 Prolene sutures. The middle of which was placed in a [id number] fashion. The skin was closed with a running 4-0 Monocryl and the wounds were dressed with Steri-Strips. Patient tolerated the procedure well and went in good condition to the postoperative care unit there were no complications. Complications: none Post-operative Condition: stable Disposition: PACU
[2022-02-24] MEDS: HYDROMORPHONE 2 MG INJ IV (12:57)
[2022-02-24] MEDS: ONDANSETRON 4 MG/2 ML INJ IV (13:03)
[2022-02-24] MEDS: fentaNYL 100 MCG/2 ML INJ IV (13:08)
[2022-02-24] MEDS: levoFLOXacin 250 MG TABLET 750 MG PO (14:54)
--- NOTE | 2022-02-24 15:17 | PM.DS.1 ---
History of Present Illness History of Present Illness Chief complaint: GALL BLADDER, PAIN LOWER RT ABD Narrative: Per admitting provider: Ms Luciano presented last night to the emergency room with severe pain that she described as feeling like a rope tied around her upper abdomen and squeezing. Her daughter is a nurse and encouraged her to go to the emergency room. They did check her heart, and ultimately determined that she had acute cholecystitis. A CT scan of the chest was done but the abdominal ultrasound showed pericholecystic fluid, gallbladder wall thickening with sludge and stones, and positive sonographic Alexandra sign; overall very indicative of the diagnosis. She says the pain has been ongoing for at least 3 nights causing her to lose sleep for 3 days and she has been nauseous. She is barely eating anything and has had a depressed appetite over the course of the last 3 days. She said that movement seem to make it worse and that the pain started in her epigastric region and radiates to her back. She said she never had pain quite like this before. However, in retrospect she had often bouts of nausea especially right before bed after dinner that may have been indicative of gallbladder illness. She explains that she has had so many other issues including heart attack and stents which were placed 3-4 years ago. As well as multiple surgeries on her hips and back pain. She has had surgery on her abdomen as well. 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 She has had a appendectomy as well. She is very convinced of the etiology being gallbladder related and is eager to have her gallbladder removed. She understands the risks of surgery and has been off her Plavix for least 4 days. Discharge Providers Provider Date of admission: 02/22/22 14:22 Discharge Date: 02/24/22 Primary care physician: Hema Erwin MD Discharge provider: Lavon Che MD Summary Hospital Course Discharge Diagnosis: 1. Acute cholecystitis 2. UTI 3. CAD s/p stents 4. Hypertension Hospital Course: Ms. Luciano was admitted to the hospital for abdominal pain and found to have acute cholecystitis. She initially was treated with antibiotics but was in quite significant pain and distress so plan was for surgery which she underwent and did well on 02/24. Afterwards she was feeling improved and able to tolerate oral intake. She was requesting to go home. Discussed with surgeon who agreed that patient could be discharged. She was found to have a UTI and given a prescription for antibiotics to complete a course for this. She should follow up with her PCP within a week. Exam Vital Signs (past 8 hours): Oxygen Delivery Method Room Air Oxygen Flow Rate 0 Narrative Exam Narrative: GEN: no acute distress CV: regular rate and rhythm, no murmurs PULM: clear bilaterally ABD: soft, expected mild incisional tenderness, nondistended, no organomegaly EXT: warm and well perfused with no edema NEURO: awake, alert, oriented, no focal deficits Objective Labs Result Diagrams: 02/24/22 05:04 02/24/22 05:04 [facility] Medical History (Updated 02/22/22 @ 13:44 by Burak Lopez MD) Degenerative disc disease Osteoarthritis of both hips Scoliosis Surgical History H/O bilateral hip replacements H/O exploratory laparotomy Social History household members: none Smoking Status: Former smoker alcohol intake: never Discharge Plan Discharge Plan Patient Disposition: Home Provider Discharge Comment: Ms. Luciano was admitted for an infected gallbladder. She improved after having surgery and was discharged home. She also was found to have a urine infection and needed one more day of antibiotics to treat her UTI. Discharge orders & Medications Prescriptions: New polyethylene glycol 3350 17 gram Powder In Packet 17 gm PO DAILY PRN (Reason: Constipation) Qty: 12 0RF hydrocodone-acetaminophen 5-325 mg Tablet 1 tab PO Q4H PRN (Reason: Pain, Moderate (4-6)) Qty: 12 0RF levofloxacin 750 mg tablet 750 mg PO DAILY Qty: 1 0RF Continued losartan 50 mg Tablet 50 mg PO BID metoprolol tartrate 50 mg Tablet 50 mg PO BID atorvastatin 40 mg Tablet 40 mg PO BEDTIME clopidogrel [Plavix] 75 mg Tablet 75 mg PO BID amlodipine 5 mg Tablet 5 mg PO BEDTIME aspirin [Adult Low Dose Aspirin] 81 mg Tablet,Delayed Release (Dr/Ec) 81 mg PO DAILY PreserVision AREDS [id number] [id number]-st-[id number] Capsule 1 cap PO BID Medication counseling provided by Pharmacist: Yes Follow up/Referrals: Hema Erwin MD [Primary Care Provider] - 1 Week Diet/Activity/Treatments Diet: Regular Visit Report/Discharge Packet Instructions: Gallstones Discharge Data Primary Care Provider: Hema Erwin
[2022-02-24] MEDS: POTASSIUM CHLORIDE 20 MEQ TAB 40 MEQ PO (17:11)
--- NOTE | 2022-02-24 17:57 | PC.NURSE ---
Pt is dressed and ready for discharge home with Son In Law. IV 's have been removed. Discharge instructions have been reviewed with Pt. and SIVAN. reminded Pt no driving while on narcotics, to drink plenty of fluids to prevent constipation or dehydration, stroke education, s/s of infection and when to call MD, no heavy lifting and to follow up as directed. Pt out via w/c by non acoustic operator to pov with all belongings.
== END 2022-02-24 18:03 | disposition home or self-care (01) | DRG 418 ==
LOC: ED 13:44 → AC 15:19
PROVIDERS: Internal Medicine; Surgery; Admitting Provider Student in an Organized Health Care Education/Training Program; Emergency Provider Emergency Medicine; PCP Family Medicine; Referring Provider Emergency Medicine; Visit Provider Student in an Organized Health Care Education/Training Program
PROC: 0FT44ZZ Resection of Gallbladder, Percutaneous Endoscopic Approach (ICD-10-PCS; CPT 47562; principal; 2022-02-24 09:15)
DX: K80.00 Calculus of gallbladder with acute cholecystitis without obstruction (principal); N39.0 Urinary tract infection, site not specified; I25.10 Atherosclerotic heart disease of native coronary artery without angina pectoris; I10 Essential (primary) hypertension; Z66 Do not resuscitate; Z87.891 Personal history of nicotine dependence; Z20.822 Contact with and (suspected) exposure to COVID-19; Z95.5 Presence of coronary angioplasty implant and graft
CPT/HCPCS: 36415; 76705; 80048; 80053; 81001; 83690; 85025; 85027; 85610; 87077; 87086; 87186; 87635; 93005; 96365; 99284; C9803; J0171; J1170; J2405; J2543; J3010

== ENCOUNTER → 2022-10-09 08:45 | Outpatient (CLI) | payer OTHER, SELFPAY ==
[2022-03-02 11:15] VITALS: BMI 20.5
--- NOTE | 2022-10-14 10:12 | P.PFT.S_ITS ---
Pulmonary Function Test Referral & Results Date Patient Seen: 10/09/22 Results: The?spirometry?demonstrates?an?FVC?of?2.71?L?which?is?115%?of?predicted. The?FEV1?was?measured?at?1.63?L?which?is?94%?of?predicted. The?FEV1/FVC?ratio?was?60?which?is?83%?of?predicted. Interpretation: This?study,?which?was?done?as?forced?spirometry?only,?demonstrates?probably?norm al?forced?spirometry?
== END ==
PROVIDERS: PCP Family Medicine; Referring Provider Family Medicine; Visit Provider Family Medicine
DX: J43.1 Panlobular emphysema (principal); R06.09 Other forms of dyspnea; Z87.891 Personal history of nicotine dependence
CPT/HCPCS: 94010; 94060

== ENCOUNTER 2023-03-06 17:31 | Emergency (ER) | payer OTHER, SELFPAY ==
[2022-03-02 11:15] VITALS: BMI 20.5
[2023-03-06] VITALS (10 sets, daily range): BP systolic 165–197; BP diastolic 78–95; PULSE 61–81; RESP 17–29; TEMP 36.6; O2SAT 91–98; BMI 20.4
--- NOTE | 2023-03-06 17:57 | DI.RAD.S_ITS ---
PROCEDURE: XR CHEST 1V INDICATIONS: chest pain TECHNIQUE: One view of the chest was acquired. COMPARISON: [facility], CR, XR CHEST 1V, 09/18/2019, 11:00. FINDINGS: Surgical changes and devices: None. Lungs and pleura: Lungs are clear. No pneumothorax. Right basilar scarring and/or atelectasis. Probable small right effusion. Mediastinum: Mediastinal contours appear normal. Heart size is normal. Bones and chest wall: No suspicious bony lesions. Overlying soft tissues appear unremarkable. IMPRESSION: No acute cardiopulmonary abnormality is seen. Dictated by: Burak Alves M.D. on 03/06/2023 at 17:12 Approved by: Burak Alves M.D. on 03/06/2023 at 17:13
[2023-03-06 18:05] LABS: INR 1.1 (0.9-1.3); Prothrombin Time 12.1 SECONDS (9.4-12.5)
[2023-03-06 18:08] LABS: Add Manual Diff / Slide Review NO; Basophils Absolute Auto 100 /uL (0-100); Basophils Percent Auto 0.8 % (0-2); Eosinophils Absolute Auto 200 /uL (0-450); Hematocrit 37.5 % (36-46); Hemoglobin 12.7 g/dL (12.0-16.0); Lymphocytes Absolute Auto 1500 /uL (1100-4500); Lymphocytes Percent Auto 19.7 % (25-40); Mean Corpuscular HGB Conc 33.8 % (30-36); Mean Corpuscular Hemoglobin 31.8 PG (26-34); Mean Corpuscular Volume 94.1 fL (80-100); Monocytes Absolute Auto 700 /uL (0-900); Monocytes Percent Auto 8.7 % (3-14); Neutrophils Absolute Auto 5200 /uL (1500-7000); Neutrophils Percent Auto 68.8 % (50-75); PTT Partial Thromboplastin Tim 32 SECONDS (25.1-36.5); Platelet Count 178 X10^3/uL (150-400); Red Blood Cell Count 3.98 X10^6/uL (4.0-5.2); Red Cell Distribution Width 14.4 % (11.6-14.8); White Blood Cell Count 7.6 X10^3/uL (4.5-11.0)
[2023-03-06] MEDS: ASPIRIN 81 MG CHEW TAB 324 MG PO (18:08)
[2023-03-06 18:10] LABS: Alanine Aminotransferase 18 IU/L (<35); Albumin 3.8 g/dL (3.5-5.0); Albumin Globulin Ratio 1.4 (1.0-2.8); Alkaline Phosphatase 66 U/L (38-126); Aspartate Aminotransferase 31 IU/L (14-36); BUN Creatinine Ratio 29.6 (6-22); Bilirubin Total 0.6 mg/dL (0.2-1.3); Blood Urea Nitrogen 24 mg/dL (7-17); Calcium 9.8 mg/dL (8.4-10.2); Carbon Dioxide 24 mmol/L (22-32); Chloride 107 mmol/L (98-107); Creatine Kinase 34 U/L (30-135); Estimated Glomerular Filt Rate > 60 mL/min (>60); Globulin 2.8 g/dL (1.7-4.1); Glucose 107 mg/dL (80-110); Lipase 356 U/L (23-300); Potassium 3.7 mmol/L (3.4-5.1); Sodium 137 mmol/L (137-145); Total Protein 6.6 g/dL (6.3-8.2)
[2023-03-06 18:11] LABS: HEMOLYSIS 51 (0-50)
[2023-03-06 18:21] LABS: Troponin I < 0.012 ng/mL (0.01-0.034)
--- NOTE | 2023-03-06 18:26 | DI.CT.S_ITS ---
PROCEDURE: CT ANGIO CHEST PE PROTOCOL INDICATIONS: CHEST PAIN, DYSPNEA, BACK PAIN TECHNIQUE: After the administration of intravenous contrast, 2 mm thick sections acquired from the pulmonary apices to the posterior costophrenic angles. 3-dimensional maximum intensity projection (MIP) coronal and sagittal reformats were then acquired through the thorax. For radiation dose reduction, the following was used: automated exposure control, adjustment of mA and/or kV according to patient size. COMPARISON: [facility], CR, XR CHEST 1V, 03/06/2023, 18:02. FINDINGS: Image quality: Diagnostic. Pulmonary arteries: Pulmonary arteries are normal in size, and demonstrate no intraluminal filling defects to suggest central pulmonary embolism. Lungs and pleura: Lungs are clear. Moderate right, small left pleural effusion.. Central and peripheral airways are patent. Centrilobular emphysematous changes. Mediastinum: Heart size is normal, without pericardial effusion. No mediastinal or hilar adenopathy. Thoracic aorta is normal in caliber and enhancement. Esophagus is normal in caliber, without hiatal hernia. Bones and chest wall: No suspicious bony lesions. Ribs and thoracic spine appear intact throughout. No axillary or supraclavicular adenopathy. No thyroid nodules which require sonographic follow up, per consensus guidelines. Upper Abdomen: Visualized upper abdominal solid organs appear normal in the early arterial phase of enhancement. IMPRESSION: No pulmonary embolus. Moderate right and small left pleural effusions. Dictated by: Burak Alves M.D. on 03/06/2023 at 17:56 Approved by: Burak Alves M.D. on 03/06/2023 at 18:01
--- NOTE | 2023-03-06 18:26 | ED_ITS ---
HPI - Chest Pain General Chief Complaint: Chest Pain Stated Complaint: chest/upper back pain has stints x2 days Time Seen by Provider: 03/06/23 17:39 Source: patient and family Mode of arrival: Ambulatory Limitations: no limitations History of Present Illness HPI narrative: 79-year-old female with history of coronary artery disease on Plavix presents by private vehicle from home for approximately 5 days of dyspnea on exertion and left-sided chest pain with exertion. Symptoms have been progressive since onset. She saw her primary care physician several days ago, who gave her nitroglycerin, but the nitroglycerin did not help her symptoms and only gave her a headache. Patient states that when she is resting and not moving she is comfortable but when she gets up to move around her shortness of breath is severe Related Data Home Medications Medication Instructions Recorded Confirmed losartan 50 mg tablet 50 mg PO BID 09/14/17 03/06/22 metoprolol tartrate 50 mg tablet 50 mg PO BID 09/14/17 03/06/22 amlodipine 5 mg tablet 5 mg PO BEDTIME 09/18/19 03/06/22 aspirin 81 mg tablet,delayed 81 mg PO DAILY 09/18/19 03/06/22 release (Adult Low Dose Aspirin) atorvastatin 40 mg tablet 40 mg PO BEDTIME 09/18/19 03/06/22 clopidogrel 75 mg tablet (Plavix) 75 mg PO BID 09/18/19 03/06/22 vitamins A,C,L-hviy-wbtxir 4,296 1 cap PO BID 09/18/19 03/06/22 mcg-226 mg-90 mg capsule (PreserVision AREDS) Previous Rx's Medication Instructions Recorded levofloxacin 750 mg tablet 750 mg PO DAILY #1 tab 02/24/22 polyethylene glycol 3350 17 gram 17 gm PO DAILY PRN Constipation 02/24/22 oral powder packet #12 ea tramadol 50 mg tablet 50 mg PO Q6H PRN pain #20 tabs 03/06/22 Allergies Allergy/AdvReac Type Severity Reaction Status Date / Time No Known Drug Allergies Allergy Verified 03/06/22 14:30 Review of Systems Review of Systems Narrative: Negative except as noted above Patient History Medical History (Updated 03/06/23 @ 20:26 by Yamila Núñez MD) Osteoarthritis of both hips Degenerative disc disease Scoliosis Surgical History H/O exploratory laparotomy H/O bilateral hip replacements Social History household members: none Smoking Status: Former smoker alcohol intake: never Smoking Status: Former smoker alcohol intake frequency: 0-2 drinks per day Substance Use Type: does not use Exam Initial Vital Signs Initial Vital Signs: Vital Signs Blood Pressure 197/91 H 03/06/23 17:42 Const: Awake, alert, no acute distress, nontoxic appearing Cardiac: regular rate, regular rhythm RESP: unlabored, decreased breath sounds right lower lung field GI: Atraumatic, soft, nontender, nondistended, no rebound, no guarding MSK: Atraumatic, full range of motion, pulses equal, no edema Skin: Warm, Dry, intact, no rashes Neuro: AO x3, CN II-XII grossly intact, moves all extremities Psych: affect normal, mood normal, not suicidal, not homicidal Course Orders Ordered: ED Orders 03/06/23 17:50 Complete Blood Count AUTO DIFF Stat Comprehensive Metabolic Panel Stat Lipase Stat Magnesium Stat PTT Partial Thromboplastin Juan Antonio Stat Prothrombin Time INR Stat Troponin & CK Cardiac Panel Stat 03/06/23 17:56 EKG-12 Lead Stat 03/06/23 17:57 XR chest 1V Stat 03/06/23 18:26 CT angio chest PE protocol Stat Discontinued Medications Aspirin (Aspirin 81 Mg Chew Tab) 324 mg PO NOW ONE Stop: 03/06/23 17:58 Last Admin: 03/06/23 18:08 Dose: 324 mg Documented By: LESLY Furosemide (Furosemide 40 Mg/4 Ml Vial) 40 mg IV NOW ONE Stop: 03/06/23 19:14 Last Admin: 03/06/23 19:22 Dose: 40 mg Documented By: URBANO Vital Signs Vital signs: Vital Signs - 8 hr 03/06/23 17:42 03/06/23 17:44 03/06/23 17:48 Temperature 97.9 F Pulse Rate 63 63 Respiratory Rate 18 Blood Pressure 197/91 H 197/91 H Pulse Oximetry 98 97 Oxygen Delivery Method Room Air 03/06/23 18:00 03/06/23 18:00 03/06/23 18:30 Temperature Pulse Rate 61 63 Respiratory Rate 22 20 Blood Pressure 178/81 H Pulse Oximetry 97 98 Oxygen Delivery Method 03/06/23 18:30 03/06/23 18:59 03/06/23 18:59 Temperature Pulse Rate 77 Respiratory Rate 23 Blood Pressure 178/78 H 166/81 H Pulse Oximetry 97 Oxygen Delivery Method 03/06/23 19:00 03/06/23 19:00 03/06/23 19:00 Temperature Pulse Rate 75 75 Respiratory Rate 17 23 Blood Pressure 165/78 H 165/78 H Pulse Oximetry 91 97 Oxygen Delivery Method Room Air 03/06/23 19:30 03/06/23 19:30 03/06/23 20:00 Temperature Pulse Rate 81 63 Respiratory Rate 29 H 20 Blood Pressure 191/95 H Pulse Oximetry 97 92 Oxygen Delivery Method 03/06/23 20:00 03/06/23 20:27 03/06/23 20:46 Temperature Pulse Rate 62 Respiratory Rate 18 Blood Pressure 168/81 H 168/81 H Pulse Oximetry 95 Oxygen Delivery Method Room Air Room Air MDM - Chest Pain Differential Diagnosis Differential diagnosis: Likely stable angina, atypical chest pain and costochondritis Lab Data 03/06/23 17:50 03/06/23 17:50 Labs: Lab Results 03/06/23 Range/Units 17:50 WBC 7.6 (4.5-11.0) X10^3/uL RBC 3.98 L (4.0-5.2) X10^6/uL Hgb 12.7 (12.0-16.0) g/dL Hct 37.5 (36-46) % MCV 94.1 (80-100) fL MCH 31.8 (26-34) PG MCHC 33.8 (30-36) % RDW 14.4 (11.6-14.8) % Plt Count 178 (150-400) X10^3/uL Neut % (Auto) 68.8 (50-75) % Lymph % (Auto) 19.7 L (25-40) % [place]house % (Auto) 8.7 (3-14) % Eos % (Auto) 2.0 (2-4) % Baso % (Auto) 0.8 (0-2) % Neut # (Auto) 5200 (2375-5713) /uL Lymph # (Auto) 1500 (4360-1670) /uL [place] # (Auto) 700 (0-900) /uL Eos # (Auto) 200 (0-450) /uL Baso # (Auto) 100 (0-100) /uL PT 12.1 (9.4-12.5) SECONDS INR 1.1 (0.9-1.3) APTT 32 (25.1-36.5) SECONDS Sodium 137 (137-145) mmol/L Potassium 3.7 (3.4-5.1) mmol/L Chloride 107 (98-107) mmol/L Carbon Dioxide 24 (22-32) mmol/L BUN 24 H (7-17) mg/dL Creatinine 0.81 (0.52-1.04) mg/dL Estimated GFR > 60 (>60) mL/min BUN/Creatinine Ratio 29.6 H (6-22) Glucose 107 (80-110) mg/dL Calcium 9.8 (8.4-10.2) mg/dL Magnesium 2.0 (1.6-2.3) mg/dL Total Bilirubin 0.6 (0.2-1.3) mg/dL AST 31 (14-36) IU/L ALT 18 (<35) IU/L Alkaline Phosphatase 66 (38-126) U/L Total Creatine Kinase 34 (30-135) U/L Troponin I < 0.012 (0.01-0.034) ng/mL Total Protein 6.6 (6.3-8.2) g/dL Albumin 3.8 (3.5-5.0) g/dL Globulin 2.8 (1.7-4.1) g/dL Albumin/Globulin Ratio 1.4 (1.0-2.8) Lipase 356 H (23-300) U/L ECG Data Interpretation: Normal sinus rhythm, rate 62 beats per minute. Normal axis, no ST T wave changes, no STEMI MDM Narrative Medical decision making narrative: This is a well-appearing patient with dyspnea on exertion and chest pain with exertion. While resting in ED bed she is comfortable and in no acute distress, vital signs stable. Laboratory work is reviewed, no abnormalities identified. Electrolytes are within normal limits, troponin is undetectable, kidney function normal, no leukocytosis. Initial chest x-ray showed no acute cardiopulmonary abnormalities, however a subsequent CT of the chest revealed moderate right- sided and mild left-sided pleural effusions. This is likely the source of patient's dyspnea. She does take 20 mg of furosemide daily. She was given a bolus IV 40 mg of Lasix and subsequently diuresed greater than 1 L of urine while in the emergency department. She was subsequently able to ambulate to the restroom and back and reported feeling much better. She states she was eager to go home because tomorrow is her birthday and she had a birthday green party planned. She has scheduled follow up in 2 weeks with Cardiology for an echocardiogram. Patient was counseled to increase her Lasix until she sees her beauty specialist. She states she is plenty and does not need a refill. She will return if she has worsening chest pain or the shortness of breath worsens despite taking her Lasix. ED return precautions discussed at bedside. Patient expressed understanding of the plan and is in agreement at this time. All questions answered at the time of discharge. Discharge Plan Departure Patient Disposition: Home Clinical Impression: Pleural effusion, Dyspnea Instructions: DI for Pleural Effusion Activity Restrictions/Additional Instructions: You were seen today for shortness of breath and chest pain. Your chest x-ray was normal, but your CT did show that you have fluid collections on both the right and left sides of your lung. Your laboratory work today was otherwise normal, your EKG did not show any signs of heart attack and your troponin (heart enzyme) was also normal. Going forward I recommend that you increase your furosemide from 20 mg daily to 40 mg daily until you see your heart doctor. If you notice worsening pain or shortness of breath despite taking this medication I recommend coming back for repeat evaluation, however I am hopeful that you will be able to feel better by increasing this medication. HAPPY BIRTHDAY! Prescriptions: No Action tramadol 50 mg tablet 50 mg PO Q6H PRN (Reason: pain) Qty: 20 0RF Rx Instructions: May take 1-2 tabs as needed every 6 hours for pain. losartan 50 mg Tablet 50 mg PO BID metoprolol tartrate 50 mg Tablet 50 mg PO BID polyethylene glycol 3350 17 gram Powder In Packet 17 gm PO DAILY PRN (Reason: Constipation) Qty: 12 0RF levofloxacin 750 mg tablet 750 mg PO DAILY Qty: 1 0RF atorvastatin 40 mg Tablet 40 mg PO BEDTIME clopidogrel [Plavix] 75 mg Tablet 75 mg PO BID amlodipine 5 mg Tablet 5 mg PO BEDTIME aspirin [Adult Low Dose Aspirin] 81 mg Tablet,Delayed Release (Dr/Ec) 81 mg PO DAILY PreserVision AREDS 14,303-226-200 [id number] Capsule 1 cap PO BID Referrals: Hema Erwin MD [Primary Care Provider] - Stand Alone Forms: Patient Portal/API
[2023-03-06] MEDS: FUROSEMIDE 40 MG/4 ML VIAL IV (19:22)
== END 2023-03-06 20:47 | disposition home or self-care (01) ==
PROVIDERS: Emergency Provider Emergency Medicine; PCP Family Medicine
DX: R07.9 Chest pain, unspecified (principal); J90 Pleural effusion, not elsewhere classified; R06.00 Dyspnea, unspecified; Z87.891 Personal history of nicotine dependence
CPT/HCPCS: 36415; 71045; 71275; 80053; 82550; 83690; 83735; 84484; 85025; 85610; 85730; 93005; 93010; 96374; 99284; 99285; J1940; Q9967

== ENCOUNTER → 2023-09-24 08:43 | Outpatient (CLI) | payer OTHER, SELFPAY ==
[2022-03-02 11:15] VITALS: BMI 20.5
--- NOTE | 2023-09-24 08:45 | DI.NM.S_ITS ---
PROCEDURE: NM EULA PERF SPECT REST & STR Rest and exercise myocardial perfusion SPECT with gated imaging and ejection fraction RADIOPHARMACEUTICAL: 10.1 mCi Tc-99m sestamibi IV at rest and 27 mCi Tc-99m sestamibi IV at peak exercise. A one day-protocol was performed. INDICATIONS: Atherosclerotic heart disease TECHNIQUE: Radiopharmaceutical was injected at peak stress test, and also at rest. SPECT images were obtained. SPECT myocardial perfusion images were displayed in short axis, horizontal long axis, and vertical long axis views. Gated images were reviewed using Fanplayr software. COMPARISON: None. CARDIAC STRESS: A standard Florentino treadmill exercise tolerance test was performed by the patient under the supervision of an attending staff. The patient exercised for 4 minutes and 46 seconds; functional aerobic impairment (NERY) is -24%. Hemodynamic data: There is normal blood pressure and heart rate response to exercise stress. Patient achieved 104% of maximum predicted heart rate at peak exercise. Symptoms: Patient denied chest pain during exercise. EKG: No diagnostic EKG changes of ischemia; no ectopy. FINDINGS: Raw data: There is good myocardial labeling by radiotracer. No significant motion artifacts. Left ventricle function: Gated images demonstrate normal left ventricle wall thickening. No segmental wall motion abnormality. No transient ischemic dilation; TID is 0.77 (normal less than 1.3). The left ventricle resting end-diastolic volume is 36 mL. Left ventricle stress ejection fraction is 96%; normal values are above 45%. Myocardial perfusion: There is normal distribution of activity in the left and right ventricular myocardium. No fixed or reversible perfusion defects. IMPRESSION: Low risk, normal treadmill nuclear stress test 1) No perfusion evidence of ischemia or infarction. 2) Normal left ventricular size, wall motion, and systolic function (EF post stress 96%). 3) No angina during exercise or recovery. 4) No ST changes during exercise or recovery. 5) Good exercise tolerance (4.9METs, NERY -24%). Target heart rate reached. Appropriate BP response to exercise. 6) No prior nuclear stress test available for comparison. Dictated by: Kath Jimenez MD on 09/24/2023 at 16:30 Approved by: Kath Jimenez MD on 09/24/2023 at 16:32
== END ==
LOC: NUCM 08:43
PROVIDERS: PCP Family Medicine; Referring Provider Internal Medicine Cardiovascular Disease; Visit Provider Internal Medicine Cardiovascular Disease
DX: I25.118 Atherosclerotic heart disease of native coronary artery with other forms of angina pectoris (principal)
CPT/HCPCS: 78452; 93017; A9502

== ENCOUNTER 2024-02-18 08:58 | Emergency (ER) | payer OTHER, SELFPAY ==
[2022-03-02 11:15] VITALS: BMI 20.5
[2024-02-18 09:05] VITALS: PULSE 73; O2SAT 97
[2024-02-18 09:07] VITALS: BP 196/94; PULSE 74; RESP 20; TEMP 36.3; O2SAT 99; BMI 17.8
--- NOTE | 2024-02-18 09:14 | ED_ITS ---
HPI - Neck Pain/Injury General Chief Complaint: Neck Pain/Injury Stated Complaint: neck/back pain, diff breathing, weakness Time Seen by Provider: 02/18/24 09:14 History of Present Illness HPI Narrative: 88-year-old woman with hypertension, hyperlipidemia coronary artery disease with multiple arthritis issues, chronic back pain and compression fractures presents complaining of 3 weeks of neck pain. She has taken a total of 2 tablets of 5 mg of oxycodone as prescribed by her primary care physician. She has using a neck brace to help at night. She has not appointment at her primary clinic in 3 days and comes in today because her neck is hurting. She has not describing any radicular pain, right now she states she is actually feeling well. No specific headaches, no chest pain or palpitations. In the middle of the night she woke up significantly nauseated secondary to pain but did not vomit. Related Data Home Medications Medication Instructions Recorded Confirmed losartan 50 mg tablet 50 mg PO BID 09/14/17 03/06/22 metoprolol tartrate 50 mg tablet 50 mg PO BID 09/14/17 03/06/22 amlodipine 5 mg tablet 5 mg PO BEDTIME 09/18/19 03/06/22 aspirin 81 mg tablet,delayed 81 mg PO DAILY 09/18/19 03/06/22 release (Adult Low Dose Aspirin) atorvastatin 40 mg tablet 40 mg PO BEDTIME 09/18/19 03/06/22 clopidogrel 75 mg tablet (Plavix) 75 mg PO BID 09/18/19 03/06/22 vitamins A,C,I-aipg-mnagih 4,296 1 cap PO BID 09/18/19 03/06/22 mcg-226 mg-90 mg capsule (PreserVision AREDS) Previous Rx's Medication Instructions Recorded levofloxacin 750 mg tablet 750 mg PO DAILY #1 tab 02/24/22 polyethylene glycol 3350 17 gram 17 gm PO DAILY PRN Constipation 02/24/22 oral powder packet #12 ea tramadol 50 mg tablet 50 mg PO Q6H PRN pain #20 tabs 03/06/22 dexamethasone 4 mg tablet 8 mg (2 x 4 mg) PO DAILY #4 tabs 02/18/24 Allergies Allergy/AdvReac Type Severity Reaction Status Date / Time No Known Drug Allergies Allergy Verified 03/06/22 14:30 Review of Systems Review of Systems Narrative: Pertinent positive and negative findings as per HPI Patient History Medical History (Updated 02/18/24 @ 10:20 by Richelle Sepulveda MD) Coronary artery disease Osteoarthritis of both hips Degenerative disc disease Scoliosis Surgical History H/O exploratory laparotomy H/O bilateral hip replacements Social History household members: none Smoking Status: Former smoker alcohol intake: never Smoking Status: Former smoker alcohol intake frequency: 0-2 drinks per day Substance Use Type: does not use Exam Initial Vital Signs Initial Vital Signs: Vital Signs Temperature 97.3 F L 02/18/24 09:07 Pulse Rate 74 02/18/24 09:07 Respiratory Rate 20 02/18/24 09:07 Blood Pressure 196/94 H 02/18/24 09:07 Pulse Oximetry 99 02/18/24 09:07 Oxygen Delivery Method Room Air 02/18/24 09:07 General: Frail appearing but Alert appropriate in no acute distress Neck: She has no midline specific tenderness to suggest new compression fracture. No significant paraspinous muscle spasm. Her left trapezius muscle is quite tender. Extremity: Range of motion in her left shoulder is not limited Respiratory: Able to speak in full sentences, no obvious respiratory distress Skin: No obvious rashes, warm and dry Neurologic: Grossly intact no obvious asymmetries or abnormalities Psych: appropriate insight and affect, cooperative Course Vital Signs Vital signs: Vital Signs - 8 hr 02/18/24 09:07 Temperature 97.3 F L Pulse Rate 74 Respiratory Rate 20 Blood Pressure 196/94 H Pulse Oximetry 99 Oxygen Delivery Method Room Air MDM - Neck Pain/Injury MDM Narrative Medical decision making narrative: 88-year-old woman with multiple chronic medical issues complains of 3 week neck pain. On clinical exam I do not suspect new compression fractures, epidural abscess or alternate diagnosis that would require emergent at this time. I do suspect that this is pain secondary to chronic arthritis. We discussed 3 days of dexamethasone to help with the acute inflammation. She has an appointment with her primary physician to discuss this pain. She states that she is done ?so much physical therapy I am not doing that again?. She is using neck splint at night that is helpful. We discussed adding heat to help with the muscle spasm in the left trapezius muscle. She does have oxycodone available and I suggested that she actually try it with 1 pill and a Tylenol in the morning and 1 pill in Tylenol around dinnertime with Tylenol mid day needed. Reassurance is given. There was no indication for additional imaging or hospitalization and she will be discharged Discharge Plan Departure Patient Disposition: Home Clinical Impression: Acute neck pain Instructions: DI for Neck Pain Activity Restrictions/Additional Instructions: I am sorry that you are suffering so much with this pain. Based on your clinical exam and your history, I do not suspect that you have compression fracture in your neck. I suspect that arthritis is the underlying cause, the arthritis causing inflammation which causes the pain that you are experiencing. Your left trapezius muscle, the muscle between your neck and your shoulder, is quite tight. I have given you a prescription for 8 mg of dexamethasone to take tomorrow in the following day. This is a powerful anti-inflammatory medication. It does not act immediately as a pain pill, but it does reduce inflammation so the pain is not so severe over the next number of days This prescription was electronically transmitted to [facility] pharmacy You have oxycodone, I would recommend 1 Tylenol and 1 oxycodone in the morning and around dinnertime. You can take 2 Tylenol in the middle of the day in the middle of the night if you need it Continue using the neck braces that are most comfortable Heating pad to the left neck maybe helpful and breaking up some of the muscle spasm Please do keep your appointment with your primary care doctor's office on Wednesday If you find that you are getting worse or develop any new symptoms, please feel free to return to the emergency department for further evaluation. Prescriptions: New dexamethasone 4 mg tablet 8 mg PO DAILY Qty: 4 0RF No Action tramadol 50 mg tablet 50 mg PO Q6H PRN (Reason: pain) Qty: 20 0RF Rx Instructions: May take 1-2 tabs as needed every 6 hours for pain. losartan 50 mg Tablet 50 mg PO BID metoprolol tartrate 50 mg Tablet 50 mg PO BID polyethylene glycol 3350 17 gram Powder In Packet 17 gm PO DAILY PRN (Reason: Constipation) Qty: 12 0RF levofloxacin 750 mg tablet 750 mg PO DAILY Qty: 1 0RF atorvastatin 40 mg Tablet 40 mg PO BEDTIME clopidogrel [Plavix] 75 mg Tablet 75 mg PO BID amlodipine 5 mg Tablet 5 mg PO BEDTIME aspirin [Adult Low Dose Aspirin] 81 mg Tablet,Delayed Release (Dr/Ec) 81 mg PO DAILY PreserVision AREDS [id number],320-226-200 [id number] Capsule 1 cap PO BID Referrals: Hema Erwin MD [Primary Care Provider] - Stand Alone Forms: Patient Portal/API/Survey
[2024-02-18 09:30] VITALS: BP 177/75; PULSE 69; RESP 19; O2SAT 97
[2024-02-18 10:00] VITALS: BP 146/97; PULSE 74; O2SAT 94
[2024-02-18 10:30] VITALS: BP 157/80; PULSE 72; RESP 21; O2SAT 95
[2024-02-18] MEDS: dexAMETHasone 4 MG TABLET 8 MG PO (10:38)
== END 2024-02-18 10:38 | disposition home or self-care (01) ==
PROVIDERS: Emergency Provider Emergency Medicine; PCP Family Medicine
DX: M54.2 Cervicalgia (principal); M19.90 Unspecified osteoarthritis, unspecified site
CPT/HCPCS: 99283